=== PATIENT | male | born 1945 | race Caucasian/White ===

== ENCOUNTER 2018-08-31 12:42 | Inpatient (IN) | payer OTHER, BC ==
--- NOTE | 2018-08-31 13:11 | PDOC ---
History of Present Illness - General Chief Complaint: Lightheaded Stated Complaint: FALL WITH DIZZINESS Time Seen by Provider: 08/31/18 13:10 - History of Present Illness Initial Comments: 08/31/18 13:51 The patient is a 73 year old male with a history of HTN, DM, Anemia who presents for evaluation for syncope and lightheadedness. The patient is accompanied by family who assist in providing the history. They report a 2 week history of worsening lightheadedness and fatigue as well as 4-5 episodes of syncope with reported head trauma prompting his presentation to the ED for further evaluation. The patient's family also notes that the patient appears more pale than normal. He otherwise denies headache, neck pain, chest pain, SOB , nausea, vomiting, abdominal pain, numbness, tingling, weakness, or changes with urination. He does note some intermittent black stools. Past History - Past Medical History Allergies/Adverse Reactions: Allergies Allergy/AdvReac Type Severity Reaction Status Date / Time No Known Allergies Allergy Verified 08/31/18 13:07 Home Medications: Ambulatory Orders Amlodipine Besylate [Norvasc -] 10 mg PO DAILY 08/31/18 Fluoxetine HCl [Prozac] 20 mg PO DAILY 08/31/18 Losartan/Hydrochlorothiazide [Losartan-Hctz 50-12.5 mg Tab] 1 each PO DAILY 08/16 Metformin HCl [Glucophage] 1,000 mg PO DAILY 08/31/18 COPD: No Diabetes: Yes HTN: Yes - Suicide/Smoking/Psychosocial Hx Smoking History: Smoker current status UNK Review of Systems - Review of Systems Comments:: 08/31/18 13:55 Constitutional: No fevers, chills, fatigue, malaise HEENT: No Rhinorrhea, nasal congestion, visual changes Cardiovascular: Syncope, Lightheadedness. No chest pain, palpitations, Respiratory: No Cough, SOB, Hemoptysis, Gastrointestinal: Melena. No Abdominal pain, Nausea, Vomiting, Constipation, Diarrhea, Genitourinary: No Dysuria, Frequency, Urgency, Hesitancy, Hematuria, Flank pain Musculoskeletal: No Myalgia, arthralgia Skin: No rashes, itching, bruising, pallor Neurologic: No Headache, Dizziness, Numbness, Weakness, or Tingling Psychiatric: No Hallucinations. No SI or HI *Physical Exam - Vital Signs Last Vital Signs Temp Pulse Resp BP Pulse Ox 97.9 F 70 18 126/57 L 100 08/31/18 13:04 08/31/18 13:04 08/31/18 13:04 08/31/18 13:04 08/31/18 13:04 - Physical Exam Comments: 08/31/18 13:56 General Appearance: Nourished. No Apparent Distress HEENT: EOMI, BRITNI. No Pharyngeal Erythema, Tonsillar Exudate, Tonsillar Erythema Neck: No Cervical Lymphadenopathy Respiratory/Chest: Lungs Clear, Normal Breath Sounds. No Crackles, Rales, Rhonchi, Wheezing Cardiovascular: Regular Rhythm, Regular Rate. 2/6 systolic murmur noted on exam. No Gallops, Rubs Gastrointestinal/Abdominal: Normal Bowel Sounds, Soft. No Guarding, Rebound, Tenderness Rectal Exam: Normal Rectal Tone. Brown stool noted. Musculoskeletal: No CVA Tenderness Extremity: Normal Capillary Refill Integumentary: Pallor noted on exam. Normal, Dry, Warm Neurologic: child study team director II-XII NML intact, Fully Oriented, Alert, Normal Mood/Affect, Normal Response, Motor Strength 5/5. Heart Score/ECG Review #1 ECG reviewed & interpreted by me at: 13:56 08/31/18 13:56 Normal Sinus Rhythm No Acute ST changes HR 72 QRS 92 QTc 457 ED Treatment Course - LABORATORY CBC & Chemistry Diagram: 08/31/18 13:40 08/31/18 17:31 Medical Decision Making - Medical Decision Making 08/31/18 13:57 The patient is a 73 year old male with a history of HTN, DM, Anemia who presents for evaluation for syncope and lightheadedness. Differential includes but is not limited to: ACS, Intracranial process, Anemia, Arrhythmia, Infectious , Metabolic Derangement. Given the patient's history and physical exam, we will obtain a cbc, cmp, troponin, tsh, ua, ekg, chest plain film, head ct, coags , stool for occult blood. We will continue to monitor and reassess while here in the ED. 08/31/18 18:54 CBC demonstrates a hgb of 7.7. Cmp demonstrates a sodium of 118. Troponin is unremarkable. Chest plain film is unremarkable. Head CT is unremarkable as read by our radiologist. Stool for occult blood is negative. We will place the patient on maintenance fluids. The patient will require admission for further management. We discussed the case with the admitting team who accepted the patient for admission. *DC/Admit/Observation/Transfer Diagnosis at time of Disposition: Hyponatremia Anemia Qualifiers: Anemia type: unspecified type Qualified Code(s): D64.9 - Anemia, unspecified Syncope Qualifiers: Syncope type: unspecified Qualified Code(s): R55 - Syncope and collapse - Discharge Dispostion Condition at time of disposition: Stable Decision to Admit order: Yes - Referrals - Patient Instructions - Post Discharge Activity
[2018-08-31 14:08] LABS: HEMATOCRIT 25.7 % (35.4-49); HEMOGLOBIN 7.7 GM/dL (11.7-16.9); MCHC 30.1 g/dl (32.0-35.9); MEAN CELL VOLUME 56.4 fl (80-96); MEAN PLT VOLUME 8.2 fl (7.5-11.1); PLATELET COUNT 393 K/MM3 (134-434); RBC 4.56 M/mm3 (4.00-5.60); RDW 19.8 % (11.9-15.9); WHITE BLOOD COUNT 7.7 K/mm3 (4.0-10.0)
[2018-08-31 14:22] LABS: INR 1.15 (0.83-1.09); PROTHROMBIN TIME (PATIENT) 13.6 SEC (9.7-13.0)
[2018-08-31 14:25] LABS: ACTIVATED PTT 35.3 SECONDS (25.2-36.5)
[2018-08-31 14:54] LABS: ALK PHOS 126 U/L (45-117); BILIRUBIN,TOTAL 0.6 mg/dL (0.2-1); BLOOD UREA NITROGEN 12 mg/dL (7-18); CALCIUM 8.9 mg/dL (8.5-10.1); CHLORIDE 80 mmol/L (98-107); CO2 24 mmol/L (21-32); CREATININE 1.1 mg/dL (0.55-1.3); GLUCOSE,RANDOM 154 mg/dL (74-106); POTASSIUM 3.8 mmol/L (3.5-5.1); SGOT/AST 66 U/L (15-37); SGPT/ALT 56 U/L (13-61); TOT PROT 7.8 g/dl (6.4-8.2)
[2018-08-31 14:57] LABS: ANION GAP 14 MMOL/L (8-16)
[2018-08-31 15:02] LABS: SODIUM 118 mmol/L (136-145)
[2018-08-31] MEDS ORDERED: SODIUM CHLORIDE 1,000 ML IV SCH ×2 (15:15→23:45)
[2018-08-31 15:28] LABS: ANISOCYTOSIS 3+; MACROCYTOSIS 0; OVALOCYTE 2+; PLATELET ESTIMATE NORMAL; TARGET CELLS 1+; TEAR DROP CELLS 1+
--- NOTE | 2018-08-31 16:55 | CONSULT ---
Consult Consult Specialty:: Nephrology Reason for Consultation:: hyponatremia - History of Present Illness Chief Complaint: syncope History of Present Illness: Pt is a 73 year old male with pmhx of HTN, DM and anemia who presents to the ER with syncope. He has had several episodes of syncope and fall over the last few weeks. He was found to have hyponatremia and I was called to evaluate him. He denies excess water intake. He has good appetite. He denies chest pain or shortness of breath. He denies lower ext edema. He was on HCTZ which he did take this morning. He denies blood in the stool. He is awake and alert. - History Source History Provided By: Patient, Family Member, Medical Record - Past Medical History Cardio/Vascular: Yes: HTN Heme/Onc: Yes: Anemia Endocrine: Yes: Diabetes Mellitus - Smoking History Smoking history: Smoker current status UNK Home Medications - Allergies Allergies/Adverse Reactions: Allergies Allergy/AdvReac Type Severity Reaction Status Date / Time No Known Allergies Allergy Verified 08/31/18 13:07 - Home Medications Home Medications: Ambulatory Orders Amlodipine Besylate [Norvasc -] 10 mg PO DAILY 08/31/18 Fluoxetine HCl [Prozac] 20 mg PO DAILY 08/31/18 Losartan/Hydrochlorothiazide [Losartan-Hctz 50-12.5 mg Tab] 1 each PO DAILY 08/16 Metformin HCl [Glucophage] 1,000 mg PO DAILY 08/31/18 Family Disease History - Family Disease History Family History: Denies Review of Systems - Review of Systems Constitutional: reports: Malaise Eyes: reports: No Symptoms HENT: reports: No Symptoms Neck: reports: No Symptoms Cardiovascular: reports: No Symptoms Respiratory: reports: No Symptoms Gastrointestinal: reports: No Symptoms Genitourinary: reports: No Symptoms Musculoskeletal: reports: No Symptoms Neurological: reports: Change in LOC, Syncope Endocrine: reports: No Symptoms Hematology/Lymphatic: reports: No Symptoms Psychiatric: reports: No Symptoms Physical Exam Vital Signs: Vital Signs Temperature 97.9 F 08/31/18 13:04 Pulse Rate 70 08/31/18 13:04 Respiratory Rate 18 08/31/18 13:04 Blood Pressure 126/57 L 08/31/18 13:04 O2 Sat by Pulse Oximetry (%) 100 08/31/18 13:04 Constitutional: Yes: Calm Eyes: Yes: Conjunctiva Clear HENT: Yes: Atraumatic Neck: Yes: Supple Cardiovascular: Yes: S1, S2 Respiratory: Yes: CTA Bilaterally Gastrointestinal: Yes: Normal Bowel Sounds, Soft Renal/: Yes: WNL Musculoskeletal: Yes: WNL Edema: No Neurological: Yes: Oriented Psychiatric: Yes: Oriented Labs: CBC, BMP 08/31/18 13:40 08/31/18 13:40 Laboratory Tests 08/31/18 08/31/18 08/31/18 13:20 13:40 13:40 WBC 7.7 Hgb 7.7 L Plt Count 393 Sodium 118 L* Potassium 3.8 Chloride 80 L Carbon Dioxide 24 Anion Gap 14 BUN 12 Creatinine 1.1 Stool Occult Blood Negative Imaging - Results Chest X-ray: Report Reviewed Cat Scan: Report Reviewed Problem List - Problems (1) HTN (hypertension) Code(s): I10 - ESSENTIAL (PRIMARY) HYPERTENSION (2) Anemia Code(s): D64.9 - ANEMIA, UNSPECIFIED Qualifiers: Anemia type: unspecified type Qualified Code(s): D64.9 - Anemia, unspecified (3) Hyponatremia Code(s): E87.1 - HYPO-OSMOLALITY AND HYPONATREMIA (4) Syncope Code(s): R55 - SYNCOPE AND COLLAPSE Qualifiers: Syncope type: unspecified Qualified Code(s): R55 - Syncope and collapse Assessment/Plan Current Medications Generic Name Dose Route Start Last Admin Trade Name Freq PRN Reason Stop Dose Admin Sodium Chloride 1,000 mls @ 100 mls/hr 08/31/18 15:15 08/31/18 15:26 Normal Saline - IV 100 mls/hr ASDIR MICA Administration Impression 1. hyponatremia 2. HTN 3. DM 4. anemia 5. syncope Plan - stop HCTZ, likely reason for hyponatremia - check serum and urine osm - check urine lytes - pt did take a dose of hctz this morning - cont wit saline and monitor response - avoid a change in sodium of greater than 10 meq in 24 hours - will need admission to the hospital - anemia workup per primary team, pt and family unaware of etiology - discussed with medical team
[2018-08-31] MEDS ORDERED: ACETAMINOPHEN 325 MG TABLET (FP) PO PRN (17:20)
--- NOTE | 2018-08-31 17:26 | HP ---
Admitting History and Physical - Primary Care Physician PCP: none - Admission Chief Complaint: weakness History of Present Illness: Mr Koo is a 73 year old male who comes in with weakness and falls. He is mainly without complaint and asks if he can go home and be treated from there. However his son and daughter are at the bedside and they state over the past 2 weeks he has been weak and falling. He has had 4 falls in 2 weeks. These falls are syncopal in nature. They say he will be walking and then lose consciousness and fall. Per discussion with Dr Aquino he may also have fell down the stairs with one fall but I was not told this. He has anorexia associated with it and has been drinking less as well. He has been compliant with all his medications. He has epigastric pain and nausea without vomiting. He denies fevers, chills, chest pain, shortness of breath, coughing, diarrhea, constipation, difficulty or pain on urination, or swelling. He has a history of anemia and had endoscopy/ colonoscopy performed in [place] where they are transitioning his care. Per family it was normal and they did not find a source of bleeding. He has not had a small bowel capsule endoscopy. Currently he says he is feeling well and does not want to stay in the hospital for long. History Source: Patient Limitations to Obtaining History: No Limitations - Past Medical History Cardiovascular: Yes: HTN, Hyperlipdemia Heme/Onc: Yes: Anemia Endocrine: Yes: Diabetes Mellitus - Past Surgical History Past Surgical History: Yes: None - Smoking History Smoking history: Never smoked If you are a former smoker, when did you quit?: uses oral tobacco - Alcohol/Substance Use Hx Alcohol Use: Yes Number of Drinks Daily: 4 History of Substance Use: reports: None - Social History Usual Living Arrangement: Yes: With Child ADL: Family Assistance Other Social History: unclear when came back from [place] and why Home Medications - Allergies Allergies/Adverse Reactions: Allergies Allergy/AdvReac Type Severity Reaction Status Date / Time No Known Allergies Allergy Verified 08/31/18 13:07 - Home Medications Home Medications: Ambulatory Orders Amlodipine Besylate [Norvasc -] 10 mg PO DAILY 08/31/18 Fluoxetine HCl [Prozac] 20 mg PO DAILY 08/31/18 Losartan/Hydrochlorothiazide [Losartan-Hctz 50-12.5 mg Tab] 1 each PO DAILY 08/16 Metformin HCl [Glucophage] 1,000 mg PO DAILY 08/31/18 Family Disease History - Family Disease History Family History: Unremarkable Review of Systems Findings/Remarks: Full review of systems obtained, as per HPI and otherwise negative Physical Examination Vital Signs: Vital Signs Temperature 36.6 C 08/31/18 13:04 Pulse Rate 70 08/31/18 13:04 Respiratory Rate 18 08/31/18 13:04 Blood Pressure 126/57 L 08/31/18 13:04 O2 Sat by Pulse Oximetry (%) 100 08/31/18 13:04 Constitutional: Yes: Well Nourished, No Distress, Calm Eyes: Yes: Conjunctiva Clear, EOM Intact, PERRL HENT: Yes: Atraumatic, Normocephalic Cardiovascular: Yes: Regular Rate and Rhythm. No: Gallop, Murmur, Rub Respiratory: Yes: Regular, CTA Bilaterally. No: Rales, Rhonchi, Wheezes Gastrointestinal: Yes: Normal Bowel Sounds, Soft. No: Distention, Tenderness Extremities: Yes: WNL Edema: No Labs: CBC, BMP 08/31/18 13:40 08/31/18 13:40 Imaging - Results Chest X-ray: Report Reviewed, Image Reviewed Cat Scan: Report Reviewed Problem List - Problems (1) Hyponatremia Assessment/Plan: -case d/w Dr Aquino in consultation -admit to telemetry -will trial normal saline -frequent bmp checks as do not want to increase sodium aggressively -suspect HCTZ is causing -also on fluoxetine which can cause, will decrease this as well Code(s): E87.1 - HYPO-OSMOLALITY AND HYPONATREMIA (2) Syncope Assessment/Plan: -possibly secondary to hyponatremia -also consider anemia but this sounds chronic in nature -hydration with IVF -fall risk precautions -check carotid ultrasound and ECHO -PT consult Code(s): R55 - SYNCOPE AND COLLAPSE Qualifiers: Syncope type: unspecified Qualified Code(s): R55 - Syncope and collapse (3) Diabetes Assessment/Plan: -diabetic diet -continue metformin -FSBS and SSI Code(s): E11.9 - TYPE 2 DIABETES MELLITUS WITHOUT COMPLICATIONS (4) Anemia Assessment/Plan: -chronic -unclear what baseline is -has not been seen in this community in 2 years, care has been transitioned to [place] -monitor -check anemia labs -transfuse for Hgb less than 7 Code(s): D64.9 - ANEMIA, UNSPECIFIED Qualifiers: Anemia type: unspecified type Qualified Code(s): D64.9 - Anemia, unspecified (5) HTN (hypertension) Assessment/Plan: -hold HCTZ -continue amlodipine and losartan Code(s): I10 - ESSENTIAL (PRIMARY) HYPERTENSION
[2018-08-31 18:06] LABS: ANION GAP 10 MMOL/L (8-16); BLOOD UREA NITROGEN 12 mg/dL (7-18); CALCIUM 8.7 mg/dL (8.5-10.1); CHLORIDE 81 mmol/L (98-107); CO2 25 mmol/L (21-32); GLUCOSE,RANDOM 149 mg/dL (74-106); POTASSIUM 3.2 mmol/L (3.5-5.1)
[2018-08-31 18:09] LABS: SODIUM 116 mmol/L (136-145)
--- NOTE | 2018-08-31 18:25 | PDOC ---
Documentation entered by Georgette Allen SCRIBE, acting as scribe for Chaim Whitt MD. Chaim Whitt MD: This documentation has been prepared by the Alejandro franco Nirvannie, SCRIBE, under my direction and personally reviewed by me in its entirety. I confirm that the documentation accurately reflects all work, treatment, procedures, and medical decision making performed by me. Attending Attestation - Resident Resident Name: Donnell Boss - ED Attending Attestation I have performed the following: I have examined & evaluated the patient, The case was reviewed & discussed with the resident, I agree w/resident's findings & plan, Exceptions are as noted - HPI HPI: 08/31/18 14:07 The patient is a 73 year old male, with a significant past medical history of HTN, HLD, DM, and Anemia, who presents to the emergency department s/p 2 weeks of multiple episodes (approx. 4) of syncope and lightheadedness. As per patient and at bedside, over the course of the past 2 weeks he has been experiencing lightheadedness followed by episodes of syncope/near syncope with multiple falls some of which he sustained trauma to the head. Patient endorses an associated intermittent 2 weeks of dark stools. He denies any chest pain or shortness of breath. Allergies: NKDA Primary Care Physician: Dr. Galvan. In the process of moving care over to [place]. - Physicial Exam PE: 08/31/18 14:27 GENERAL: Awake, alert, and fully oriented, in no acute distress HEAD: No signs of trauma NECK: Normal ROM. No JVD. LUNGS: Breath sounds equal, clear to auscultation bilaterally. No wheezes, and no crackles HEART: Regular rate and rhythm, normal S1 and S2, no murmurs, rubs or gallops ABDOMEN: Soft, nontender. No guarding, no rebound. EXTREMITIES: Normal range of motion, no edema. No clubbing or cyanosis. No cords, erythema, or tenderness NEUROLOGICAL: Alert, awake, appropriate. Cranial nerves 2-12 intact. No deficits to light touch and temperature in face, upper extremities and lower extremities. No motor deficits in the in face, upper extremities and lower extremities. No pronator drift. Normoreflexic in the upper and lower extremities. Normal speech. Toes are down-going bilaterally. SKIN: +Abrasion without tenderness to right forearm. Warm, Dry, normal turgor, no rashes or lesions noted. - Medical Decision Making 08/31/18 14:10 A portion of this note was documented by scribe services under my direction. I have reviewed the details of the note, within reason, and agree with the documentation with the following case summary and management plan written by me. Patient treated in the ED. Nursing notes are reviewed and incorporated into the medical decision-making. Vital signs reviewed. Peripheral IV access obtained by the nurse, laboratory studies are drawn and sent, reviewed and interpreted by myself. Vital Signs Temp Pulse Resp BP Pulse Ox 97.9 F 70 18 126/57 L 100 08/31/18 13:04 08/31/18 13:04 08/31/18 13:08/31/18 13:08/31/18 13:04 73-year-old male with history of hypertension, diabetes, hyperlipidemia presents with multiple syncopal episodes over last 2 weeks. The patient's and the patient noted that he's been feeling generally weak and occasionally lightheaded. The symptoms would be prompted by no prodromal symptoms. Patient would faint and occasionally hit his head. Denies any broken bones or injuries or pain. Patient does feel like worsened appetite and no fevers or chills or nausea or vomiting. Denies diarrhea. Denies chest pain short of breath. The patient's been endorsing feeling generally weak but not altered. Patient's findings are concerning for multiple syncopal episodes. We'll obtain head CT given the fall and injury. The patient is neurologically intact at this time. EKG, troponin, chest x-ray. We'll need to investigate for potential cardiac or neurologic etiology so the patient should be admitted to the hospital. TYPE/EXAM: RESULT: RAD/CHEST X-RAY PORTABLE* Chest : Lightheadedness. A single view of the chest reveals a weak inspiration with clear lungs, sharp angles, intact bones and soft tissues, unfolded aorta, normal darryl and normal heart. An acute chest process is not seen. Impression: No acute chest pathology. Reported By: Andre Brandt MD 08/31/18 15:46 CBC, BMP 08/31/18 13:40 08/31/18 13:40 CMP Sodium 118 mmol/L (136-145) L* 08/31/18 13:40 Potassium 3.8 mmol/L (3.5-5.1) 08/31/18 13:40 Chloride 80 mmol/L (98-107) L 08/31/18 13:40 Carbon Dioxide 24 mmol/L (21-32) 08/31/18 13:40 Anion Gap 14 MMOL/L (8-16) 08/31/18 13:40 BUN 12 mg/dL (7-18) 08/31/18 13:40 Creatinine 1.1 mg/dL (0.55-1.3) 08/31/18 13:40 Creat Clearance w eGFR 65.99 (>60) 08/31/18 13:40 Random Glucose 154 mg/dL (74-106) H 08/31/18 13:40 Calcium 8.9 mg/dL (8.5-10.1) 08/31/18 13:40 Total Bilirubin 0.6 mg/dL (0.2-1) 08/31/18 13:40 AST 66 U/L (15-37) H 08/31/18 13:40 ALT 56 U/L (13-61) 08/31/18 13:40 Alkaline Phosphatase 126 U/L (45-117) H 08/31/18 13:40 Creatine Kinase 158 U/L (26-308) 08/31/18 13:40 Creatine Kinase Index 7.2 % (0.0-5.0) H* 08/31/18 13:40 CK-MB (CK-2) 11.5 ng/mL (0.5-3.6) H 08/31/18 13:40 Troponin I < 0.02 ng/ml (0.00-0.05) 08/31/18 13:40 Total Protein 7.8 g/dl (6.4-8.2) 08/31/18 13:40 Albumin 4.0 g/dl (3.4-5.0) 08/31/18 13:40 TSH 1.79 uIU/ml (0.358-3.74) 08/31/18 13:40 The patient is noted to have hemoglobin 7.7 and low MCV. Patient could potentially be having symptomatically anemia however, the patient will need further workup as his sodium is also 118. The patient has multiple disarray several require admission. The patient will be minutes the hospital for further evaluate. Imaging reviewed. Heart Score/ECG Review #1 ECG reviewed & interpreted by me at: 13:00 08/31/18 14:12 NSR 72, no std/lissette, Q wave III, QTC 457 msec, nonspecific ST abnormality, no brugada, no HOCM, no WPW
[2018-08-31] MEDS ORDERED: POTASSIUM CHLORIDE TABS 20 MEQ TABLET.ER (FP) PO ONE (22:14)
[2018-08-31 23:15] LABS: ALBUMIN 3.8 g/dl (3.4-5.0); ALK PHOS 118 U/L (45-117); ANION GAP 9 MMOL/L (8-16); BILIRUBIN,TOTAL 0.6 mg/dL (0.2-1); BLOOD UREA NITROGEN 9 mg/dL (7-18); CALCIUM 8.9 mg/dL (8.5-10.1); CHLORIDE 84 mmol/L (98-107); CO2 25 mmol/L (21-32); CREATININE 0.9 mg/dL (0.55-1.3); GLUCOSE,RANDOM 141 mg/dL (74-106); MAGNESIUM 1.8 mg/dL (1.8-2.4); POTASSIUM 3.5 mmol/L (3.5-5.1); SGOT/AST 54 U/L (15-37); SGPT/ALT 50 U/L (13-61); TOT PROT 7.6 g/dl (6.4-8.2)
[2018-08-31 23:22] LABS: SODIUM 118 mmol/L (136-145)
[2018-08-31] MEDS ORDERED: SODIUM CHLORIDE 1 GM TABLET PO ONE (23:45)
[2018-08-31] MEDS ORDERED: SODIUM CHLORIDE 500 ML IV STA (23:58)
[2018-09-01] MEDS: INSULIN SLIDING SCALE (NOVOLOG) 1 VIAL SQ SCH ×5 (00:11→22:40)
[2018-09-01] MEDS ORDERED: POTASSIUM CHLORIDE TABS 20 MEQ TABLET.ER (FP) PO ONE (00:14)
[2018-09-01] MEDS ORDERED: metFORMIN HCL 500 MG TABLET (FP) PO SCH (07:00)
[2018-09-01] MEDS ORDERED: metFORMIN HCL 500 MG TABLET (FP) ONE (07:11)
[2018-09-01 07:20] LABS: HEMATOCRIT 22.5 % (35.4-49); MCHC 30.8 g/dl (32.0-35.9); MEAN PLT VOLUME 8.1 fl (7.5-11.1); PLATELET COUNT 361 K/MM3 (134-434); RBC 4.01 M/mm3 (4.00-5.60); RDW 19.9 % (11.9-15.9); WHITE BLOOD COUNT 7.1 K/mm3 (4.0-10.0)
[2018-09-01 07:26] LABS: ALBUMIN 3.6 g/dl (3.4-5.0); ALK PHOS 112 U/L (45-117); ANION GAP 9 MMOL/L (8-16); BILIRUBIN,TOTAL 0.6 mg/dL (0.2-1); BLOOD UREA NITROGEN 7 mg/dL (7-18); CALCIUM 8.4 mg/dL (8.5-10.1); CHLORIDE 86 mmol/L (98-107); CO2 25 mmol/L (21-32); CREATININE 0.7 mg/dL (0.55-1.3); GLUCOSE,RANDOM 135 mg/dL (74-106); MAGNESIUM 1.6 mg/dL (1.8-2.4); POTASSIUM 3.7 mmol/L (3.5-5.1); SGOT/AST 46 U/L (15-37); SGPT/ALT 45 U/L (13-61); TOT PROT 7.1 g/dl (6.4-8.2)
[2018-09-01 07:27] LABS: MCH 17.2 pg (25.7-33.7)
[2018-09-01 07:44] LABS: SODIUM 119 mmol/L (136-145)
[2018-09-01 08:09] LABS: HEMOGLOBIN 6.9 GM/dL (11.7-16.9)
[2018-09-01 09:14] LABS: OSMOLALITY,SERUM 245 mosm/kg (278-305)
--- NOTE | 2018-09-01 09:19 | EKG ---
Test Reason : Blood Pressure : / mmHG Vent. Rate : 072 BPM Atrial Rate : 072 BPM P-R Int : 172 ms QRS Dur : 092 ms QT Int : 418 ms P-R-T Axes : 029 022 040 degrees QTc Int : 457 ms NORMAL SINUS RHYTHM WITH SINUS ARRHYTHMIA NONSPECIFIC ST ABNORMALITY ABNORMAL ECG NO PREVIOUS ECGS AVAILABLE Confirmed by ANNA FELTON, EMILIANO ([id number]) on 09/01/2018 9:19:09 AM Referred By: Confirmed By:EMILIANO CASTILLO MD
[2018-09-01] MEDS ORDERED: amLODIPine BESYLATE 5 MG TABLET (FP) ONE (09:37)
[2018-09-01] MEDS ORDERED: LOSARTAN POTASSIUM 50 MG TABLET (FP) ONE (09:38)
[2018-09-01] MEDS ORDERED: MAGNESIUM OXIDE 400 MG TABLET (FP) ONE (09:38)
[2018-09-01] MEDS ORDERED: SODIUM CHLORIDE 3% 500 ML/500 ML INFUS.BAG IV ONE ×4 (09:45→14:40)
[2018-09-01] MEDS ORDERED: FLUoxetine HCL 10 MG CAPSULE (FP) PO SCH (10:00)
[2018-09-01] MEDS ORDERED: MAGNESIUM OXIDE 400 MG TABLET (FP) PO SCH (10:00)
[2018-09-01] MEDS ORDERED: LOSARTAN POTASSIUM 50 MG TABLET (FP) PO SCH (10:00)
[2018-09-01] MEDS ORDERED: amLODIPine BESYLATE 10 MG TABLET (FP) PO SCH (10:00)
[2018-09-01] MEDS: MUPIROCIN 2% TOPICAL OINTMENT FOR DECOLONIZATION NS SCH ×2 (10:09→22:24)
--- NOTE | 2018-09-01 10:18 | PN ---
Progress Note, Physician Chief Complaint: Mr Koo complains of being unable to sleep but otherwise is without complaint. Denies cp, sob, n/v. - Current Medication List Current Medications: Active Medications Acetaminophen (Tylenol -) 650 mg PO Q4H PRN PRN Reason: FEVER Amlodipine Besylate (Norvasc -) 10 mg PO DAILY [facility] Last Admin: 09/01/18 10:06 Dose: 10 mg Chlorhexidine Gluconate (Hibiclens For Decolonization -) 1 applic TP HS [facility] Fluoxetine HCl (Prozac -) 10 mg PO DAILY [facility] Last Admin: 09/01/18 10:07 Dose: 10 mg Sodium Chloride (Sodium Chloride 3%) 500 ml in 500 mls @ 25 mls/hr IV ASDIR ONE Stop: 09/02/18 05:44 Last Admin: 09/01/18 10:07 Dose: 25 mls/hr Insulin Aspart (Novolog Vial Sliding Scale -) 1 vial SQ ACHS [facility]; Protocol Last Admin: 09/01/18 09:15 Dose: Not Given Losartan Potassium (Cozaar -) 50 mg PO DAILY [facility] Last Admin: 09/01/18 10:06 Dose: 50 mg Magnesium Oxide (Mag-Ox -) 400 mg PO BID [facility] Last Admin: 09/01/18 10:06 Dose: 400 mg Metformin HCl (Glucophage -) 1,000 mg PO AM [facility] Last Admin: 09/01/18 07:15 Dose: 1,000 mg Mupirocin (Bactroban Ointment (For Decolonization) -) 1 applic NS BID [facility] Stop: 09/06/18 09:59 Last Admin: 09/01/18 10:09 Dose: Not Given - Objective Vital Signs: Vital Signs Temperature 36.9 C 09/01/18 08:00 Pulse Rate 70 09/01/18 08:00 Respiratory Rate 18 09/01/18 08:00 Blood Pressure 142/70 09/01/18 08:00 O2 Sat by Pulse Oximetry (%) 98 09/01/18 06:07 Constitutional: Yes: Well Nourished, No Distress, Calm Cardiovascular: Yes: Regular Rate and Rhythm. No: Gallop, Murmur, Rub Respiratory: Yes: Regular, CTA Bilaterally. No: Rales, Rhonchi, Wheezes Gastrointestinal: Yes: Normal Bowel Sounds, Soft. No: Distention, Tenderness Extremities: Yes: WNL Edema: No Labs: CBC, BMP 09/01/18 05:20 09/01/18 05:20 INR, PTT INR 1.15 (0.83-1.09) H 08/31/18 13:40 Problem List - Problems (1) Hyponatremia Code(s): E87.1 - HYPO-OSMOLALITY AND HYPONATREMIA (2) Syncope Code(s): R55 - SYNCOPE AND COLLAPSE Qualifiers: Syncope type: unspecified Qualified Code(s): R55 - Syncope and collapse (3) Diabetes Code(s): E11.9 - TYPE 2 DIABETES MELLITUS WITHOUT COMPLICATIONS (4) Anemia Code(s): D64.9 - ANEMIA, UNSPECIFIED Qualifiers: Anemia type: unspecified type Qualified Code(s): D64.9 - Anemia, unspecified (5) HTN (hypertension) Code(s): I10 - ESSENTIAL (PRIMARY) HYPERTENSION Assessment/Plan (1) Hyponatremia Assessment/Plan: -case d/w Dr Aquino in consultation -not much improved -will place on hypertonic saline -transfer to ICU -? if solely from HCTZ and fluoxetine -considering anemia, possible neoplastic syndrome -will obtain CT scan C/A/P Code(s): E87.1 - HYPO-OSMOLALITY AND HYPONATREMIA (2) Syncope Assessment/Plan: -has not recurred -carotid ultrasound performed -ECHO pending -continue fall risk precautions and PT consult Code(s): R55 - SYNCOPE AND COLLAPSE Qualifiers: Syncope type: unspecified Qualified Code(s): R55 - Syncope and collapse (3) Diabetes Assessment/Plan: -diabetic diet -continue metformin -FSBS and SSI -controlled Code(s): E11.9 - TYPE 2 DIABETES MELLITUS WITHOUT COMPLICATIONS (4) Anemia Assessment/Plan: -Hgb is less than 7 today -will transfuse 1 unit -has elevated B12 and folate -ferritin is low normal -awaiting iron studies -check FOBT -family considering transitioning care back here to [place] Code(s): D64.9 - ANEMIA, UNSPECIFIED Qualifiers: Anemia type: unspecified type Qualified Code(s): D64.9 - Anemia, unspecified (5) HTN (hypertension) Assessment/Plan: -hold HCTZ -continue amlodipine and losartan Code(s): I10 - ESSENTIAL (PRIMARY) HYPERTENSION
[2018-09-01 13:42] LABS: BLOOD UREA NITROGEN 6 mg/dL (7-18); CALCIUM 8.7 mg/dL (8.5-10.1); CHLORIDE 87 mmol/L (98-107); CO2 22 mmol/L (21-32); GLUCOSE,RANDOM 132 mg/dL (74-106); POTASSIUM 3.6 mmol/L (3.5-5.1)
[2018-09-01 14:00] LABS: ANION GAP 11 MMOL/L (8-16); CREATININE 0.7 mg/dL (0.55-1.3)
[2018-09-01 14:10] LABS: SODIUM 119 mmol/L (136-145)
[2018-09-01] MEDS ORDERED: ACETAMINOPHEN 325 MG TABLET (FP) PO PRN (14:40)
--- NOTE | 2018-09-01 15:01 | CONSULT ---
Consult Consult Specialty:: CCM Reason for Consultation:: hyponatremia, syncope, fall - History of Present Illness History of Present Illness: This is a 73 yo man w/ HTN, DM, depression who present to ED w/ several episodes of syncope over the 7 days [employer] prompting ED visit where he was found to have severe hypoosmotic hyponatremia (Na:118, osmo 245) in the setting of HCTZ plus prozac use. Renal was consulted and given symptomatic hyponatremia the patient was placed on hypertonic saline (3%) and admitted to the ICU for continued monitoring. He was also noted to have anemia w/ Hgb 6.9 and was transfused PRBC x1. CTAP was w/o signs of RP bleeding. Given syncope a NCHCT was done and negative for acute pathology. Carotid dopplers done w/ results pending. - History Source History Provided By: Patient, Family Member, Medical Record Limitations to Obtaining History: No Limitations - Past Medical History Cardio/Vascular: Yes: HTN, Hyperlipdemia Endocrine: Yes: Diabetes Mellitus - Past Surgical History Past Surgical History: Yes: None - Alcohol/Substance Use Hx Alcohol Use: Yes Number of Drinks Daily: 4 History of Substance Use: reports: None - Smoking History Smoking history: Never smoked If you are a former smoker, when did you quit?: uses oral tobacco - Social History ADL: Family Assistance Home Medications - Allergies Allergies/Adverse Reactions: Allergies Allergy/AdvReac Type Severity Reaction Status Date / Time No Known Allergies Allergy Verified 08/31/18 13:07 - Home Medications Home Medications: Ambulatory Orders Amlodipine Besylate [Norvasc -] 10 mg PO DAILY 08/31/18 Fluoxetine HCl [Prozac] 20 mg PO DAILY 08/31/18 Losartan/Hydrochlorothiazide [Losartan-Hctz 50-12.5 mg Tab] 1 each PO DAILY 08/16 Metformin HCl [Glucophage] 1,000 mg PO DAILY 08/31/18 Family Disease History - Family Disease History Family History: Unremarkable Review of Systems - Review of Systems Constitutional: reports: Lethargy, Weakness Eyes: reports: No Symptoms. denies: Blind Spots, Blurred Vision, Double Vision , Eye Pain, Floaters, Photophobia, Recent Change in Vision, Other Respiratory: reports: No Symptoms Neurological: reports: Dizziness, Syncope Physical Exam Vital Signs: Vital Signs Temperature 97.9 F 09/01/18 12:15 Pulse Rate 73 09/01/18 12:15 Respiratory Rate 21 H 09/01/18 12:15 Blood Pressure 150/73 09/01/18 12:15 O2 Sat by Pulse Oximetry (%) 95 09/01/18 10:00 Current Medications Acetaminophen (Tylenol -) 650 mg PO Q4H PRN PRN Reason: FEVER Amlodipine Besylate (Norvasc -) 10 mg PO DAILY [facility] Chlorhexidine Gluconate (Hibiclens For Decolonization -) 1 applic TP HS MICA Fluoxetine HCl (Prozac -) 10 mg PO DAILY [facility] Sodium Chloride (Sodium Chloride 3%) 500 ml in 500 mls @ 35 mls/hr IV ASDIR ONE Stop: 09/02/18 00:02 Sodium Chloride (Sodium Chloride 3%) 500 ml in 500 mls @ 25 mls/hr IV ASDIR ONE Stop: 09/02/18 05:44 Insulin Aspart (Novolog Vial Sliding Scale -) 1 vial SQ ACHS [facility]; Protocol Losartan Potassium (Cozaar -) 50 mg PO DAILY [facility] Magnesium Oxide (Mag-Ox -) 400 mg PO BID [facility] Metformin HCl (Glucophage -) 1,000 mg PO AM [facility] Mupirocin (Bactroban Ointment (For Decolonization) -) 1 applic NS BID [facility] Stop: 09/06/18 09:59 Last Admin: 09/01/18 10:09 Dose: Not Given Constitutional: Yes: Calm Eyes: Yes: EOM Intact HENT: Yes: Normocephalic Cardiovascular: Yes: Regular Rate and Rhythm, S1, S2 Respiratory: Yes: CTA Bilaterally Gastrointestinal: Yes: Normal Bowel Sounds, Soft Extremities: Yes: WNL Edema: No Neurological: Yes: Alert, Oriented Labs: CBC, BMP 09/01/18 05:20 09/01/18 12:30 Laboratory Tests 08/31/18 08/31/18 17:31 17:31 Urine Osmolality 484 Ur Random Sodium 86 Ur Random Potassium 41.6 Ur Random Chloride 99 L Imaging - Results Chest X-ray: Report Reviewed, Image Reviewed Cat Scan: Report Reviewed, Image Reviewed Problem List - Problems (1) Anemia Code(s): D64.9 - ANEMIA, UNSPECIFIED Qualifiers: Anemia type: unspecified type Qualified Code(s): D64.9 - Anemia, unspecified (2) Diabetes Code(s): E11.9 - TYPE 2 DIABETES MELLITUS WITHOUT COMPLICATIONS (3) Hyponatremia Code(s): E87.1 - HYPO-OSMOLALITY AND HYPONATREMIA (4) Syncope Code(s): R55 - SYNCOPE AND COLLAPSE Qualifiers: Syncope type: unspecified Qualified Code(s): R55 - Syncope and collapse Assessment/Plan 73 yo man HTN, DM who presented after syncopal episodes found to be hyponatremic and anemic.HypoNa most likely medication related: HCTZ and prozac -Renal following -goal Na correction 125 over next 24hrs. Goal 8 Paulina per day -cont hyperNa per Renal w/ frequent BMP tp monitor correction -d/c home HCTZ -decrease prozac by 50% as this may also be contributing to hypoNa but unable to stop completely 2/2 possibility of withdrawal -strict I&Os -notify MD if urine output >200ml/hr -transfuse for Hgb <7.0 -check AM cortisol level as source of hypoNa -anemia w/u as OP, given c/f possible underlying malignancy -DVT PPx Boerem ACNP CCT: 35m
--- NOTE | 2018-09-01 16:23 | PN ---
Progress Note, Physician History of Present Illness: Pt seen and examined at bedside. He is awake and alert. He denies shortness of breath. He denies headache. - Current Medication List Current Medications: Active Medications Acetaminophen (Tylenol -) 650 mg PO Q4H PRN PRN Reason: FEVER Amlodipine Besylate (Norvasc -) 10 mg PO DAILY [facility] Chlorhexidine Gluconate (Hibiclens For Decolonization -) 1 applic TP HS MICA Fluoxetine HCl (Prozac -) 10 mg PO DAILY [facility] Sodium Chloride (Sodium Chloride 3%) 500 ml in 500 mls @ 35 mls/hr IV ASDIR ONE Stop: 09/02/18 00:02 Last Admin: 09/01/18 15:24 Dose: 35 mls/hr Insulin Aspart (Novolog Vial Sliding Scale -) 1 vial SQ ACHS [facility]; Protocol Losartan Potassium (Cozaar -) 50 mg PO DAILY [facility] Magnesium Oxide (Mag-Ox -) 400 mg PO BID [facility] Mupirocin (Bactroban Ointment (For Decolonization) -) 1 applic NS BID [facility] Stop: 09/06/18 09:59 Last Admin: 09/01/18 10:09 Dose: Not Given - Objective Vital Signs: Vital Signs Temperature 98.6 F 09/01/18 15:09 Pulse Rate 81 09/01/18 16:00 Respiratory Rate 23 H 09/01/18 16:00 Blood Pressure 111/87 09/01/18 16:00 O2 Sat by Pulse Oximetry (%) 95 09/01/18 10:00 Constitutional: Yes: Calm Eyes: Yes: Conjunctiva Clear HENT: Yes: Atraumatic Cardiovascular: Yes: S1, S2 Respiratory: Yes: CTA Bilaterally Gastrointestinal: Yes: Soft Genitourinary: Yes: WNL Musculoskeletal: Yes: WNL Extremities: Yes: WNL Edema: No Neurological: Yes: Oriented Psychiatric: Yes: Oriented Labs: CBC, BMP 09/01/18 05:20 09/01/18 12:30 INR, PTT INR 1.15 (0.83-1.09) H 08/31/18 13:40 Problem List - Problems (1) HTN (hypertension) Code(s): I10 - ESSENTIAL (PRIMARY) HYPERTENSION (2) Anemia Code(s): D64.9 - ANEMIA, UNSPECIFIED Qualifiers: Anemia type: unspecified type Qualified Code(s): D64.9 - Anemia, unspecified (3) Hyponatremia Code(s): E87.1 - HYPO-OSMOLALITY AND HYPONATREMIA (4) Syncope Code(s): R55 - SYNCOPE AND COLLAPSE Qualifiers: Syncope type: unspecified Qualified Code(s): R55 - Syncope and collapse Assessment/Plan Current Medications Generic Name Dose Route Start Last Admin Trade Name Freq PRN Reason Stop Dose Admin Acetaminophen 650 mg 09/01/18 14:40 Tylenol - PO Q4H PRN FEVER Amlodipine Besylate 10 mg 09/02/18 10:00 Norvasc - PO DAILY [facility] Chlorhexidine Gluconate 1 applic 09/01/18 22:00 Hibiclens For Decolonization - TP HS [facility] Fluoxetine HCl 10 mg 09/02/18 10:00 Prozac - PO DAILY [facility] Sodium Chloride 500 ml in 500 mls @ 35 mls/hr 09/01/18 14:26 09/01/18 15:24 Sodium Chloride 3% IV 09/02/18 00:02 35 mls/hr ASDIR ONE Administration Insulin Aspart 1 vial 09/01/18 16:30 Novolog Vial Sliding Scale - SQ ACHS [facility] Protocol Losartan Potassium 50 mg 09/02/18 10:00 Cozaar - PO DAILY [facility] Magnesium Oxide 400 mg 09/01/18 22:00 Mag-Ox - PO BID [facility] Mupirocin 1 applic 09/01/18 10:00 09/01/18 10:09 Bactroban Ointment (For Decolonization) - NS 09/06/18 09:59 Not Given BID [facility] Laboratory Tests 08/31/18 08/31/18 09/01/18 17:31 17:31 05:20 Serum Osmolality 245 L Iron TIBC Iron Saturation Transferrin Urine Osmolality 484 Ur Random Sodium 86 09/01/18 05:20 Serum Osmolality Iron Pending TIBC Pending Iron Saturation Pending Transferrin Pending Urine Osmolality Ur Random Sodium Laboratory Tests 08/31/18 13:20 Stool Occult Blood Negative Impression 1. hyponatremia 2. HTN 3. DM 4. anemia 5. syncope Plan - changed fluids to hypertonic saline - pt now in ICU - keep thiazide on hold - avoid a change in sodium of greater than 10 meq in 24 hours - will need admission to the hospital - anemia workup per primary team - discussed with medical team
[2018-09-01] MEDS ORDERED: DEXTROSE 5%-WATER - 1,000 ML IV SCH ×2 (17:15→19:15)
[2018-09-01 18:33] LABS: HEMATOCRIT 29.8 % (35.4-49); HEMOGLOBIN 9.3 GM/dL (11.7-16.9); MCHC 31.2 g/dl (32.0-35.9); MEAN CELL VOLUME 60.2 fl (80-96); MEAN PLT VOLUME 8.1 fl (7.5-11.1); PLATELET COUNT 331 K/MM3 (134-434); RBC 4.96 M/mm3 (4.00-5.60); RDW 24.1 % (11.9-15.9); WHITE BLOOD COUNT 7.8 K/mm3 (4.0-10.0)
[2018-09-01 18:41] LABS: MCH 18.8 pg (25.7-33.7)
[2018-09-01 18:53] LABS: ANION GAP 10 MMOL/L (8-16); BLOOD UREA NITROGEN 8 mg/dL (7-18); CALCIUM 8.3 mg/dL (8.5-10.1); CHLORIDE 93 mmol/L (98-107); CO2 24 mmol/L (21-32); CREATININE 0.9 mg/dL (0.55-1.3); GLUCOSE,RANDOM 129 mg/dL (74-106); POTASSIUM 3.5 mmol/L (3.5-5.1); SODIUM 127 mmol/L (136-145)
--- NOTE | 2018-09-01 19:06 | PN ---
Progress Note (short form) - Note Progress Note: Laboratory Tests 09/01/18 18:17 Sodium 127 L Potassium 3.5 Chloride 93 L Carbon Dioxide 24 Anion Gap 10 BUN 8 labs reviewed - give d5w at 100 cc for 2 hours and repeat labs Problem List - Problems (1) HTN (hypertension) Code(s): I10 - ESSENTIAL (PRIMARY) HYPERTENSION (2) Anemia Code(s): D64.9 - ANEMIA, UNSPECIFIED Qualifiers: Anemia type: unspecified type Qualified Code(s): D64.9 - Anemia, unspecified (3) Hyponatremia Code(s): E87.1 - HYPO-OSMOLALITY AND HYPONATREMIA (4) Syncope Code(s): R55 - SYNCOPE AND COLLAPSE Qualifiers: Syncope type: unspecified Qualified Code(s): R55 - Syncope and collapse
[2018-09-01] MEDS ORDERED: PT OWN MED DRAWER 7, Y5N ONE (21:47)
[2018-09-01] MEDS ORDERED: MELATONIN 5 MG TABLETS PO ONE (21:50)
[2018-09-01 22:05] LABS: ANION GAP 9 MMOL/L (8-16); BLOOD UREA NITROGEN 10 mg/dL (7-18); CALCIUM 8.8 mg/dL (8.5-10.1); CHLORIDE 94 mmol/L (98-107); CO2 24 mmol/L (21-32); GLUCOSE,RANDOM 160 mg/dL (74-106); POTASSIUM 3.8 mmol/L (3.5-5.1); SODIUM 127 mmol/L (136-145)
[2018-09-01] MEDS: CHLORHEXIDINE GLUCONATE 4% CLEANSER FOR DECOLONIZATION TP SCH (22:23)
[2018-09-01] MEDS: MAGNESIUM OXIDE 400 MG TABLET (FP) PO SCH (22:23)
[2018-09-01] MEDS ORDERED: hydrALAZINE HCL 25 MG TABLET (FP) PO ONE (22:47)
[2018-09-02 03:26] LABS: ANION GAP 9 MMOL/L (8-16); BLOOD UREA NITROGEN 10 mg/dL (7-18); CALCIUM 8.4 mg/dL (8.5-10.1); CHLORIDE 92 mmol/L (98-107); CO2 23 mmol/L (21-32); CREATININE 0.9 mg/dL (0.55-1.3); GLUCOSE,RANDOM 144 mg/dL (74-106); POTASSIUM 3.5 mmol/L (3.5-5.1); SODIUM 124 mmol/L (136-145)
[2018-09-02 05:11] LABS: SERUM IRON SATURATION 3 % (15-55); TOTAL IRON BINDING CAPACITY 387 ug/dL (250-450); UIBC 375 ug/dL (111-343)
[2018-09-02 06:54] LABS: BASO % 0.9 % (0-2.0); HEMOGLOBIN 8.6 GM/dL (11.7-16.9); LYMPH % 14.2 % (8-40); MCHC 31.8 g/dl (32.0-35.9); MEAN CELL VOLUME 58.7 fl (80-96); MEAN PLT VOLUME 8.2 fl (7.5-11.1); NEUT % 70.9 % (42.8-82.8); PLATELET COUNT 328 K/MM3 (134-434); RBC 4.61 M/mm3 (4.00-5.60); RDW 23.9 % (11.9-15.9); WHITE BLOOD COUNT 7.1 K/mm3 (4.0-10.0)
[2018-09-02] MEDS ORDERED: metFORMIN HCL 500 MG TABLET (FP) PO SCH (07:00)
[2018-09-02 07:01] LABS: MCH 18.7 pg (25.7-33.7)
[2018-09-02 07:12] LABS: ANION GAP 9 MMOL/L (8-16); BLOOD UREA NITROGEN 9 mg/dL (7-18); CALCIUM 8.5 mg/dL (8.5-10.1); CHLORIDE 91 mmol/L (98-107); CO2 24 mmol/L (21-32); CREATININE 0.8 mg/dL (0.55-1.3); GLUCOSE,RANDOM 126 mg/dL (74-106); MAGNESIUM 1.9 mg/dL (1.8-2.4); PHOSPHOROUS 3.1 mg/dL (2.5-4.9); POTASSIUM 3.5 mmol/L (3.5-5.1); SODIUM 124 mmol/L (136-145)
[2018-09-02] MEDS: INSULIN SLIDING SCALE (NOVOLOG) 1 VIAL SQ SCH ×4 (07:23→22:00)
[2018-09-02] MEDS ORDERED: SODIUM CHLORIDE 1,000 ML IV SCH ×2 (08:00→09:45)
[2018-09-02] MEDS ORDERED: PT OWN MED DRAWER 7, Y5N ONE ×2 (09:51→22:01)
--- NOTE | 2018-09-02 09:56 | PN ---
Teaching Attending Note Name of Resident: Parish Guzman ATTENDING PHYSICIAN STATEMENT I saw and evaluated the patient. I reviewed the resident's note and discussed the case with the resident. I agree with the resident's findings and plan as documented. SUBJECTIVE: Mr Koo is without complaint. Denies cp, sob, n/v. OBJECTIVE: Last Vital Signs Temp Pulse Resp BP Pulse Ox 37.0 C 69 27 H 158/84 100 09/02/18 06:00 09/02/18 08:00 09/02/18 08:00 09/02/18 08:00 09/02/18 08:32 Gen: nad Pulm: ctab w/o w/r/r CV: rrr w/o m/r/g Abd: +bs, s/nt/nd Ext: no c/c/e CBC, BMP 09/02/18 05:30 09/02/18 05:30 ASSESSMENT AND PLAN: (1) Hyponatremia Assessment/Plan: -case d/w Dr Aquino -improved with hypertonic saline -needed D5W for short time -correcting at appropriate rate Code(s): E87.1 - HYPO-OSMOLALITY AND HYPONATREMIA (2) Syncope Assessment/Plan: -has not recurred -carotid ultrasound reviewed -ECHO reviewed -continue fall risk precautions and PT consult Code(s): R55 - SYNCOPE AND COLLAPSE Qualifiers: Syncope type: unspecified Qualified Code(s): R55 - Syncope and collapse (3) Diabetes Assessment/Plan: -diabetic diet -continue metformin -FSBS and SSI -controlled Code(s): E11.9 - TYPE 2 DIABETES MELLITUS WITHOUT COMPLICATIONS (4) Anemia Assessment/Plan: -s/p transfusion -iron deficiency anemia Code(s): D64.9 - ANEMIA, UNSPECIFIED Qualifiers: Anemia type: unspecified type Qualified Code(s): D64.9 - Anemia, unspecified (5) HTN (hypertension) Assessment/Plan: -hold HCTZ -continue amlodipine and losartan Code(s): I10 - ESSENTIAL (PRIMARY) HYPERTENSION Problem List - Problems (1) Hyponatremia Code(s): E87.1 - HYPO-OSMOLALITY AND HYPONATREMIA (2) Syncope Code(s): R55 - SYNCOPE AND COLLAPSE Qualifiers: Syncope type: unspecified Qualified Code(s): R55 - Syncope and collapse (3) Diabetes Code(s): E11.9 - TYPE 2 DIABETES MELLITUS WITHOUT COMPLICATIONS (4) Anemia Code(s): D64.9 - ANEMIA, UNSPECIFIED Qualifiers: Anemia type: unspecified type Qualified Code(s): D64.9 - Anemia, unspecified (5) HTN (hypertension) Code(s): I10 - ESSENTIAL (PRIMARY) HYPERTENSION
[2018-09-02] MEDS: MAGNESIUM OXIDE 400 MG TABLET (FP) PO SCH ×2 (10:40→22:02)
[2018-09-02] MEDS: LOSARTAN POTASSIUM 50 MG TABLET (FP) PO SCH (10:40)
[2018-09-02] MEDS: amLODIPine BESYLATE 10 MG TABLET (FP) PO SCH (10:40)
[2018-09-02] MEDS: MUPIROCIN 2% TOPICAL OINTMENT FOR DECOLONIZATION NS SCH ×2 (10:42→22:02)
[2018-09-02] MEDS: FLUoxetine HCL 10 MG CAPSULE (FP) PO SCH (11:47)
--- NOTE | 2018-09-02 12:17 | PN ---
Progress Note (short form) - Note Progress Note: Progress Note HD# 2 SUBJECTIVE: No acute events overnight. Pt switched from hypertonic saline to D5W due to increase of serum Na. Pt states he is feeling well. OBJECTIVE: Vital signs 09/02/18 09/02/18 06:00 08:31 Temperature 98.6 F Pulse Rate 72 Respiratory 16 Rate Blood Pressure 144/80 O2 Sat by Pulse 100 Oximetry (%) Laboratory Tests 09/02/18 09/02/18 05:30 05:30 WBC 7.1 Hgb 8.6 L Hct 27.0 L Plt Count 328 Sodium 124 L Potassium 3.5 Chloride 91 L Carbon Dioxide 24 BUN 9 Creatinine 0.8 Random Glucose 126 H Calcium 8.5 Phosphorus 3.1 Magnesium 1.9 Lines: PIV Drains: None Supplemental Oxygen: yes 2L Physical Exams: General Appearance: Awake, Alert, NAD Lungs: Lungs Clear, Normal Breath Sounds. No Crackles, Rales, Rhonchi, Wheezing Heart: Regular Rhythm, Regular Rate. No JVD, Murmur, Gallops, Rubs Abdomen: Normal Bowel Sounds, Soft. No Guarding, Rebound, Tenderness Musculoskeletal: No CVA Tenderness Extremity: Normal Capillary Refill Integumentary: Pale, Dry, Warm Drips: NS Anti Infectives: None Active Medications: Medications Magnesium Oxide (Mag-Ox -) 400 mg PO BID [facility] Last Admin: 09/02/18 10:40 Dose: 400 mg Sodium Chloride (Normal Saline -) 1,000 mls @ 50 mls/hr IV ASDIR [facility] Stop: 09/03/18 09:31 Last Admin: 09/02/18 09:42 Dose: 50 mls/hr Mupirocin (Bactroban Ointment (For Decolonization) -) 1 applic NS BID [facility] Stop: 09/06/18 09:59 Last Admin: 09/02/18 10:42 Dose: 1 applic Losartan Potassium (Cozaar -) 50 mg PO DAILY [facility] Last Admin: 09/02/18 10:40 Dose: 50 mg Chlorhexidine Gluconate (Hibiclens For Decolonization -) 1 applic TP HS [facility] Last Admin: 09/01/18 22:23 Dose: 1 applic Iron Sucrose 200 mg/ Sodium (Chloride) 100 mls @ 100 mls/hr IVPB ONCE ONE Stop: 09/03/18 11:59 Amlodipine Besylate (Norvasc -) 10 mg PO DAILY [facility] Last Admin: 09/02/18 10:40 Dose: 10 mg Insulin Aspart (Novolog Vial Sliding Scale -) 1 vial SQ ACHS [facility]; Protocol Last Admin: 09/02/18 16:47 Dose: Not Given Fluoxetine HCl (Prozac -) 10 mg PO DAILY [facility] Last Admin: 09/02/18 11:47 Dose: 10 mg Acetaminophen (Tylenol -) 650 mg PO Q4H PRN PRN Reason: FEVER ASSESSMENT / PLAN: 73yo Male with PMH of HTN, DM, Anemia presenting to ICU for hypoosmolar hyponatremia and anemia. Hyponatremia attributed to fluoxetine and HCTZ use. Guaiac negative. Neuro (& Psych): -CT head negative for acute process. Pt alert and oriented. - No further workup needed Endocrine: -hypoosmolar hyponatremia -Na [address] on isotonic NS drip. -Nephrology on board -Will trend electrolytes -Cortisol levels pending -Insulin Cardiovascular: -HTN -Getting home meds. Withholding HCTZ Pulm / Resp: - Anemia and hyponatremia. May have malignancy - Will be monitored by primary team Gastrointestinal: -Guaiac negative. No GI bleed -Magnesium oxide Hematologic: -Symptomatic Anemia. -Received 3u PRBC. -Hgb increasing. Does not require further transfusions FEN: -Diabetic Diet Prophylaxis: -Withholding VTE prophylaxis 2/2 anemia Dispo: Na corrected, does not need to be on hypertonic saline drip. Anemia corrected. Stable for tele floor.
[2018-09-02 13:05] VITALS: BMI 20.5
--- NOTE | 2018-09-02 13:08 | CONSULT ---
Consultation: REQUESTING PROVIDER: CONSULT REQUEST: We have been asked to medically evaluate this patient for anemia. HISTORY OF PRESENT ILLNESS: This is a 73 yo M with PMH of HTN, DM, depression, who presented due to several episodes of syncope over the past 7 days, was found to be severely hyponatremiaic and hypoosmotic likely due to HCTZ and prozac use and was treated with hypertonic saline. Found to be anemic Hgb 6.9 with severe microcytosis and hypochromia MCV 60.2 MCH 18.8. Transfused 1 pack PRBC, MCV, MCH trending down after transfusion. CT abd/pelvis w/o signs of bleeding. Daughter has been diagnosed with mild anemia due to thalassemia, most likley Beta minor. he was first told about being anemic several years ago but never had symptoms until now. last colonoscopy/egd workup for anemia 1 yr ago wnl. remote history of light smoking but daily tobacco chewer. REVIEW OF SYSTEMS: CONSTITUTIONAL: Absent: fever, chills HEENT: Absent: rhinorrhea, nasal congestion, throat pain CARDIOVASCULAR: Absent: chest pain, palpitations, irregular heart rate, lightheadedness, peripheral edema RESPIRATORY: Absent: cough, shortness of breath, dyspnea with exertion, orthopnea, wheezing, stridor, hemoptysis GASTROINTESTINAL: Absent: abdominal pain, abdominal distension, nausea, vomiting, diarrhea, constipation, melena, hematochezia GENITOURINARY: Absent: dysuria, hematuria MUSCULOSKELETAL: Absent: myalgia, arthralgia SKIN: Absent: rash, itching, pallor HEMATOLOGIC/IMMUNOLOGIC: Absent: easy bleeding, easy bruising, lymphadenopathy, frequent infections ENDOCRINE: Absent: unexplained weight gain, unexplained weight loss NEUROLOGIC: Absent: headache, focal weakness or paresthesias PSYCHIATRIC: Absent: anxiety, depression PHYSICAL EXAMINATION Vital Signs - 24 hr 09/01/18 09/01/18 09/01/18 15:09 16:00 16:46 Temperature 98.6 F Pulse Rate 80 81 Respiratory 20 23 H Rate Blood Pressure 166/86 111/87 O2 Sat by Pulse 100 Oximetry (%) 09/01/18 09/01/18 09/01/18 18:33 20:00 21:00 Temperature Pulse Rate 81 Respiratory 23 H Rate Blood Pressure 151/76 O2 Sat by Pulse 100 100 Oximetry (%) 09/02/18 09/02/18 09/02/18 00:00 02:00 04:00 Temperature 98.2 F Pulse Rate 66 67 68 Respiratory 15 16 18 Rate Blood Pressure 138/68 157/77 150/73 O2 Sat by Pulse Oximetry (%) 09/02/18 09/02/18 09/02/18 06:00 08:00 08:31 Temperature 98.6 F Pulse Rate 72 69 Respiratory 16 27 H Rate Blood Pressure 144/80 158/84 O2 Sat by Pulse 100 Oximetry (%) 09/02/18 09/02/18 09/02/18 08:32 10:44 12:00 Temperature 98.0 F Pulse Rate 68 73 Respiratory 19 22 H Rate Blood Pressure 150/75 134/69 O2 Sat by Pulse 100 Oximetry (%) GENERAL: Awake, alert, and fully oriented, in no acute distress. HEAD: Normal with no signs of trauma. EYES: Pupils equal, round and reactive to light, extraocular movements intact, sclera anicteric, conjunctiva clear. EARS, NOSE, THROAT: Moist mucous membranes., no lesions on tongue NECK: supple LUNGS: Breath sounds equal, clear to auscultation bilaterally. HEART: Regular rate and rhythm, normal S1 and S2, grqade 2 systolic murmur ABDOMEN: Soft, nontender, not distended, normoactive bowel sounds, no guarding, no rebound, no masses. MUSCULOSKELETAL: No CVA tenderness. no bony deformity UPPER EXTREMITIES: No peripheral edema. LOWER EXTREMITIES: 2No calf tenderness. No peripheral edema. NEUROLOGICAL: Cranial nerves II-XII grossly intact. Normal speech. PSYCHIATRIC: Cooperative. Good eye contact. Appropriate mood and affect. SKIN: Warm, dry Laboratory Results - last 24 hr 09/01/18 09/01/18 09/01/18 05:20 12:30 17:05 WBC RBC Hgb Hct MCV MCH MCHC RDW Plt Count MPV Absolute Neuts (auto) Neutrophils % Lymphocytes % Monocytes % Eosinophils % Basophils % Nucleated RBC % Sodium 119 L* Potassium 3.6 Chloride 87 L Carbon Dioxide 22 Anion Gap 11 BUN 6 L Creatinine 0.7 Creat Clearance w eGFR 111.17 POC Glucometer 151 Random Glucose 132 H Calcium 8.7 Phosphorus Magnesium Iron 12 L TIBC 387 Iron Saturation 3 L 09/01/18 09/01/18 09/01/18 18:17 18:17 21:30 WBC 7.8 RBC 4.96 Hgb 9.3 L Hct 29.8 L D MCV 60.2 L D MCH 18.8 L MCHC 31.2 L RDW 24.1 H Plt Count 331 MPV 8.1 Absolute Neuts (auto) Neutrophils % Lymphocytes % Monocytes % Eosinophils % Basophils % Nucleated RBC % Sodium 127 L 127 L Potassium 3.5 3.8 Chloride 93 L 94 L Carbon Dioxide 24 24 Anion Gap 10 9 BUN 8 10 Creatinine 0.9 1.0 Creat Clearance w eGFR 83.18 73.66 POC Glucometer Random Glucose 129 H 160 H Calcium 8.3 L 8.8 Phosphorus Magnesium Iron TIBC Iron Saturation 09/01/18 09/02/18 09/02/18 21:31 02:15 05:30 WBC 7.1 RBC 4.61 Hgb 8.6 L Hct 27.0 L MCV 58.7 L MCH 18.7 L MCHC 31.8 L RDW 23.9 H Plt Count 328 MPV 8.2 Absolute Neuts (auto) 5.0 Neutrophils % 70.9 Lymphocytes % 14.2 Monocytes % 13.0 H Eosinophils % 1.0 Basophils % 0.9 Nucleated RBC % 0 Sodium 124 L Potassium 3.5 Chloride 92 L Carbon Dioxide 23 Anion Gap 9 BUN 10 Creatinine 0.9 Creat Clearance w eGFR 83.18 POC Glucometer 188 Random Glucose 144 H Calcium 8.4 L Phosphorus Magnesium Iron TIBC Iron Saturation 09/02/18 09/02/18 09/02/18 05:30 07:17 11:12 WBC RBC Hgb Hct MCV MCH MCHC RDW Plt Count MPV Absolute Neuts (auto) Neutrophils % Lymphocytes % Monocytes % Eosinophils % Basophils % Nucleated RBC % Sodium 124 L Potassium 3.5 Chloride 91 L Carbon Dioxide 24 Anion Gap 9 BUN 9 Creatinine 0.8 Creat Clearance w eGFR 95.30 POC Glucometer 181 145 Random Glucose 126 H Calcium 8.5 Phosphorus 3.1 Magnesium 1.9 Iron TIBC Iron Saturation Active Medications Generic Name Dose Route Start Last Admin Trade Name Freq PRN Reason Stop Dose Admin Acetaminophen 650 mg 09/01/18 14:40 Tylenol - PO Q4H PRN FEVER Amlodipine Besylate 10 mg 09/02/18 10:00 09/02/18 10:40 Norvasc - PO 10 mg DAILY [facility]ICA Administration Chlorhexidine Gluconate 1 applic 09/01/18 22:00 09/01/18 22:23 Hibiclens For Decolonization - TP 1 applic HS [facility]ICA Administration Fluoxetine HCl 10 mg 09/02/18 10:00 09/02/18 11:47 Prozac - PO 10 mg DAILY [facility] Administration Sodium Chloride 1,000 mls @ 83 mls/hr 09/02/18 08:00 09/02/18 08:17 Normal Saline - IV 83 mls/hr ASDIR [facility] Administration Sodium Chloride 1,000 mls @ 50 mls/hr 09/02/18 09:45 09/02/18 09:42 Normal Saline - IV 09/03/18 09:31 50 mls/hr ASDIR [facility] Administration Insulin Aspart 1 vial 09/01/18 16:30 09/02/18 11:41 Novolog Vial Sliding Scale - SQ Not Given ACHS [facility] Protocol Losartan Potassium 50 mg 09/02/18 10:00 09/02/18 10:40 Cozaar - PO 50 mg DAILY [facility] Administration Magnesium Oxide 400 mg 09/01/18 22:00 09/02/18 10:40 Mag-Ox - PO 400 mg BID [facility] Administration Mupirocin 1 applic 09/01/18 10:00 09/02/18 10:42 Bactroban Ointment (For Decolonization) - NS 09/06/18 09:59 1 applic BID [facility] Administration ASSESSMENT/PLAN: This is a 73 yo M with PMH of HTN, DM, depression, who presented due to several episodes of syncope; anemic Hgb 6.9 with severe microcytosis and hypochromia MCV 60.2 MCH 18.8 and trending down after transfusion microcytic hypochromic anemia HCV MCH trending down s/p transfusion r/o thalassemia, r/o gi source of bleed ( low iron) hgb trending down s/p transfusion may be dilutional, received about 2 L fluid hypoosmolar hyponatremia HTN DM Depression -iron studies point to a source of bleed (low fe) that is bringing hgb below 11 typical of thalassemia; needs repeat gi workup with capsule endoscopy -f/u tfts -SPEP/UPEP -esr/crp -Hgb electrophoresis -further recs per renal and ICU team Dispo: We will continue to follow the patient. Thank you for this consultative opportunity. Visit type - Emergency Visit Emergency Visit: Yes ED Registration Date: 08/31/18 Care time: The patient presented to the Emergency Department on the above date and was hospitalized for further evaluation of their emergent condition. - New Patient This patient is new to me today: Yes Date on this admission: 09/02/18 - Critical Care Critical Care patient: Yes Total Critical Care Time (in minutes): 45 Critical Care Statement: The care of this patient involved high complexity decision making to prevent further life threatening deterioration of the patient 's condition and/or to evaluate & treat vital organ system(s) failure or risk of failure.
[2018-09-02 13:53] LABS: ANION GAP 9 MMOL/L (8-16); BLOOD UREA NITROGEN 10 mg/dL (7-18); CHLORIDE 92 mmol/L (98-107); CO2 23 mmol/L (21-32); GLUCOSE,RANDOM 223 mg/dL (74-106); POTASSIUM 3.4 mmol/L (3.5-5.1); SODIUM 124 mmol/L (136-145)
[2018-09-02] MEDS ORDERED: POTASSIUM CHLORIDE TABS 20 MEQ TABLET.ER (FP) PO ONE (13:53)
--- NOTE | 2018-09-02 13:56 | PN ---
Progress Note, Physician History of Present Illness: Pt seen and examined at bedside. He is awake and alert. He denies shortness of breath. - Current Medication List Current Medications: Active Medications Acetaminophen (Tylenol -) 650 mg PO Q4H PRN PRN Reason: FEVER Amlodipine Besylate (Norvasc -) 10 mg PO DAILY [facility] Last Admin: 09/02/18 10:40 Dose: 10 mg Chlorhexidine Gluconate (Hibiclens For Decolonization -) 1 applic TP HS [facility] Last Admin: 09/01/18 22:23 Dose: 1 applic Fluoxetine HCl (Prozac -) 10 mg PO DAILY [facility] Last Admin: 09/02/18 11:47 Dose: 10 mg Sodium Chloride (Normal Saline -) 1,000 mls @ 83 mls/hr IV ASDIR [facility] Last Admin: 09/02/18 08:17 Dose: 83 mls/hr Sodium Chloride (Normal Saline -) 1,000 mls @ 50 mls/hr IV ASDIR [facility] Stop: 09/03/18 09:31 Last Admin: 09/02/18 09:42 Dose: 50 mls/hr Insulin Aspart (Novolog Vial Sliding Scale -) 1 vial SQ [facility]; Protocol Last Admin: 09/02/18 11:41 Dose: Not Given Losartan Potassium (Cozaar -) 50 mg PO DAILY [facility] Last Admin: 09/02/18 10:40 Dose: 50 mg Magnesium Oxide (Mag-Ox -) 400 mg PO BID [facility] Last Admin: 09/02/18 10:40 Dose: 400 mg Mupirocin (Bactroban Ointment (For Decolonization) -) 1 applic NS BID [facility] Stop: 09/06/18 09:59 Last Admin: 09/02/18 10:42 Dose: 1 applic - Objective Vital Signs: Vital Signs Temperature 98.0 F 09/02/18 10:44 Pulse Rate 73 09/02/18 12:00 Respiratory Rate 22 H 09/02/18 12:00 Blood Pressure 134/69 09/02/18 12:00 O2 Sat by Pulse Oximetry (%) 100 09/02/18 08:32 Constitutional: Yes: Calm Eyes: Yes: Conjunctiva Clear HENT: Yes: Atraumatic Neck: Yes: Supple Cardiovascular: Yes: S1, S2 Respiratory: Yes: CTA Bilaterally Gastrointestinal: Yes: Normal Bowel Sounds, Soft Genitourinary: Yes: WNL Musculoskeletal: Yes: WNL Edema: No Neurological: Yes: Oriented Psychiatric: Yes: Oriented Labs: CBC, BMP 09/02/18 05:30 09/02/18 12:58 INR, PTT INR 1.15 (0.83-1.09) H 08/31/18 13:40 Problem List - Problems (1) HTN (hypertension) Code(s): I10 - ESSENTIAL (PRIMARY) HYPERTENSION (2) Anemia Code(s): D64.9 - ANEMIA, UNSPECIFIED Qualifiers: Anemia type: unspecified type Qualified Code(s): D64.9 - Anemia, unspecified (3) Hyponatremia Code(s): E87.1 - HYPO-OSMOLALITY AND HYPONATREMIA (4) Syncope Code(s): R55 - SYNCOPE AND COLLAPSE Qualifiers: Syncope type: unspecified Qualified Code(s): R55 - Syncope and collapse Assessment/Plan Current Medications Generic Name Dose Route Start Last Admin Trade Name Freq PRN Reason Stop Dose Admin Acetaminophen 650 mg 09/01/18 14:40 Tylenol - PO Q4H PRN FEVER Amlodipine Besylate 10 mg 09/02/18 10:00 09/02/18 10:40 Norvasc - PO 10 mg DAILY [facility] Administration Chlorhexidine Gluconate 1 applic 09/01/18 22:00 09/01/18 22:23 Hibiclens For Decolonization - TP 1 applic HS [facility] Administration Fluoxetine HCl 10 mg 09/02/18 10:00 09/02/18 11:47 Prozac - PO 10 mg DAILY [facility] Administration Sodium Chloride 1,000 mls @ 83 mls/hr 09/02/18 08:00 09/02/18 08:17 Normal Saline - IV 83 mls/hr ASDIR [facility] Administration Sodium Chloride 1,000 mls @ 50 mls/hr 09/02/18 09:45 09/02/18 09:42 Normal Saline - IV 09/03/18 09:31 50 mls/hr ASDIR [facility] Administration Insulin Aspart 1 vial 09/01/18 16:30 09/02/18 11:41 Novolog Vial Sliding Scale - SQ Not Given ACHS [facility] Protocol Losartan Potassium 50 mg 09/02/18 10:00 09/02/18 10:40 Cozaar - PO 50 mg DAILY [facility] Administration Magnesium Oxide 400 mg 09/01/18 22:00 09/02/18 10:40 Mag-Ox - PO 400 mg BID [facility] Administration Mupirocin 1 applic 09/01/18 10:00 09/02/18 10:42 Bactroban Ointment (For Decolonization) - NS 09/06/18 09:59 1 applic BID [facility] Administration Potassium Chloride 40 meq 09/02/18 13:53 K-Dur - PO 09/02/18 13:54 ONCE ONE Impression 1. hyponatremia 2. HTN 3. DM 4. anemia 5. syncope Plan - restart saline - sodium is improving - avoid a change of greater than 10 meq in 24 hrs - discussed with ICU team - anemia workup per primary team
--- NOTE | 2018-09-02 14:15 | PN ---
Teaching Attending Note Name of Resident: Kinga Garcia ATTENDING PHYSICIAN STATEMENT I saw and evaluated the patient. I reviewed the resident's note and discussed the case with the resident. I agree with the resident's findings and plan as documented. SUBJECTIVE: Patient seen and examined in the ICU. Awake and alert. No CP or SOB. Intake & Output 08/30/18 08/31/18 09/01/18 09/02/18 23:59 23:59 23:59 23:59 Intake Total 1325 500 Output Total 2200 800 Balance -875 -300 Weight 160 lb 135 lb Last Vital Signs Temp Pulse Resp BP Pulse Ox 98.5 F 70 19 124/65 100 09/02/18 14:00 09/02/18 14:00 09/02/18 14:00 09/02/18 14:00 09/02/18 08:32 Active Medications Acetaminophen (Tylenol -) 650 mg PO Q4H PRN PRN Reason: FEVER Amlodipine Besylate (Norvasc -) 10 mg PO DAILY [facility] Last Admin: 09/02/18 10:40 Dose: 10 mg Chlorhexidine Gluconate (Hibiclens For Decolonization -) 1 applic TP HS [facility] Last Admin: 09/01/18 22:23 Dose: 1 applic Fluoxetine HCl (Prozac -) 10 mg PO DAILY [facility] Last Admin: 09/02/18 11:47 Dose: 10 mg Sodium Chloride (Normal Saline -) 1,000 mls @ 83 mls/hr IV ASDIR [facility] Last Admin: 09/02/18 08:17 Dose: 83 mls/hr Sodium Chloride (Normal Saline -) 1,000 mls @ 50 mls/hr IV ASDIR [facility] Stop: 09/03/18 09:31 Last Admin: 09/02/18 09:42 Dose: 50 mls/hr Insulin Aspart (Novolog Vial Sliding Scale -) 1 vial SQ ACHS [facility]; Protocol Last Admin: 09/02/18 11:41 Dose: Not Given Losartan Potassium (Cozaar -) 50 mg PO DAILY [facility] Last Admin: 09/02/18 10:40 Dose: 50 mg Magnesium Oxide (Mag-Ox -) 400 mg PO BID [facility] Last Admin: 09/02/18 10:40 Dose: 400 mg Mupirocin (Bactroban Ointment (For Decolonization) -) 1 applic NS BID [facility] Stop: 09/06/18 09:59 Last Admin: 09/02/18 10:42 Dose: 1 applic Constitutional: Yes: NAD Eyes: Yes: Conjunctiva Clear HENT: Yes: Atraumatic Neck: Yes: Supple Cardiovascular: Yes: S1, S2 Respiratory: Yes: CTA Bilaterally Gastrointestinal: Yes: Normal Bowel Sounds, Soft Genitourinary: Yes: WNL Musculoskeletal: Yes: WNL Edema: No Neurological: Yes: Oriented Psychiatric: Yes: Oriented Labs: Laboratory Results - last 24 hr 09/01/18 09/01/18 09/01/18 05:20 17:05 18:17 WBC RBC Hgb Hct MCV MCH MCHC RDW Plt Count MPV Absolute Neuts (auto) Neutrophils % Lymphocytes % Monocytes % Eosinophils % Basophils % Nucleated RBC % Sodium 127 L Potassium 3.5 Chloride 93 L Carbon Dioxide 24 Anion Gap 10 BUN 8 Creatinine 0.9 Creat Clearance w eGFR 83.18 POC Glucometer 151 Random Glucose 129 H Calcium 8.3 L Phosphorus Magnesium Iron 12 L TIBC 387 Iron Saturation 3 L 09/01/18 09/01/18 09/01/18 18:17 21:30 21:31 WBC 7.8 RBC 4.96 Hgb 9.3 L Hct 29.8 L D MCV 60.2 L D MCH 18.8 L MCHC 31.2 L RDW 24.1 H Plt Count 331 MPV 8.1 Absolute Neuts (auto) Neutrophils % Lymphocytes % Monocytes % Eosinophils % Basophils % Nucleated RBC % Sodium 127 L Potassium 3.8 Chloride 94 L Carbon Dioxide 24 Anion Gap 9 BUN 10 Creatinine 1.0 Creat Clearance w eGFR 73.66 POC Glucometer 188 Random Glucose 160 H Calcium 8.8 Phosphorus Magnesium Iron TIBC Iron Saturation 09/02/18 09/02/18 09/02/18 02:15 05:30 05:30 WBC 7.1 RBC 4.61 Hgb 8.6 L Hct 27.0 L MCV 58.7 L MCH 18.7 L MCHC 31.8 L RDW 23.9 H Plt Count 328 MPV 8.2 Absolute Neuts (auto) 5.0 Neutrophils % 70.9 Lymphocytes % 14.2 Monocytes % 13.0 H Eosinophils % 1.0 Basophils % 0.9 Nucleated RBC % 0 Sodium 124 L 124 L Potassium 3.5 3.5 Chloride 92 L 91 L Carbon Dioxide 23 24 Anion Gap 9 9 BUN 10 9 Creatinine 0.9 0.8 Creat Clearance w eGFR 83.18 95.30 POC Glucometer Random Glucose 144 H 126 H Calcium 8.4 L 8.5 Phosphorus 3.1 Magnesium 1.9 Iron TIBC Iron Saturation 09/02/18 09/02/18 09/02/18 07:17 11:12 12:58 WBC RBC Hgb Hct MCV MCH MCHC RDW Plt Count MPV Absolute Neuts (auto) Neutrophils % Lymphocytes % Monocytes % Eosinophils % Basophils % Nucleated RBC % Sodium 124 L Potassium 3.4 L Chloride 92 L Carbon Dioxide 23 Anion Gap 9 BUN 10 Creatinine 1.0 Creat Clearance w eGFR 73.66 POC Glucometer 181 145 Random Glucose 223 H Calcium 9.0 Phosphorus Magnesium Iron TIBC Iron Saturation Problem List - Problems (1) HTN (hypertension) Code(s): I10 - ESSENTIAL (PRIMARY) HYPERTENSION (2) Anemia Code(s): D64.9 - ANEMIA, UNSPECIFIED Qualifiers: Anemia type: unspecified type Qualified Code(s): D64.9 - Anemia, unspecified (3) Hyponatremia Code(s): E87.1 - HYPO-OSMOLALITY AND HYPONATREMIA (4) Syncope Code(s): R55 - SYNCOPE AND COLLAPSE Qualifiers: Syncope type: unspecified Qualified Code(s): R55 - Syncope and collapse Assessment/Plan Symptomatic Hyponatremia HTN DM Anemia Syncope Plan Fluid restriction Avoid a change of greater than 10 meq in 24 hrs O2 as needed Strict I & O Hold HCTZ Floor Dr Hu
--- NOTE | 2018-09-02 15:58 | ECHO ---
Name: TOMASA SAAB Exam:Adult Echocardiogram Study Date: 09/02/2018 03:01 PM Age: 73 yrs Reason For Study: SYNCOPE Height: 68 in Weight: 160 lb BSA: 1.9 m2 MMode/2D Measurements & Calculations IVSd: 0.89 cm Ao root diam: 3.4 cm LVIDd: 4.7 cm LA dimension: 3.3 cm LVIDs: 3.2 cm LVPWd: 0.76 cm EDV(Teich): 102.0 ml LVOT diam: 2.0 cm ESV(Teich): 41.9 ml Doppler Measurements & Calculations MV E max deni: 103.2 cm/sec Ao V2 max: 85.6 cm/sec MV A max deni: 78.0 cm/sec Ao max P.7 mmHg MV E/A: 1.3 Ao V2 mean: 104.0 cm/sec MV dec time: 0.17 sec Ao mean P.0 mmHg Ao V2 VTI: 33.2 cm KEILA(I,D): 2.3 cm2 AI P1/2t: 484.9 msec KEILA(V,D): 3.9 cm2 AI max deni: 433.0 cm/sec LV V1 max P.6 mmHg AI max P.0 mmHg LV V1 mean P.6 mmHg AI dec slope: 261.6 cm/sec2 LV V1 max: 107.5 cm/sec LV V1 mean: 75.1 cm/sec LV V1 VTI: 24.3 cm MR max deni: 432.5 cm/sec SV(LVOT): 75.7 ml MR max P.8 mmHg TR max deni: 239.4 cm/sec Med Peak E' Deni: 7.4 cm/sec TR max P.0 mmHg Med E/e': 13.9 Lat Peak E' Deni: 8.8 cm/sec Lat E/e': 11.8 Procedure A complete two-dimensional transthoracic echocardiogram was performed (2D, M-mode, Doppler and color flow Doppler). Left Ventricle The left ventricle is normal in size. Left ventricular systolic function is normal. Ejection Fraction = 55- 60%. No regional wall motion abnormalities noted. Right Ventricle The right ventricle is normal size. The right ventricular systolic function is normal. RV systolic TD I is 12 cm/s. Atria The left atrial size is normal. Right atrial size is normal. Mitral Valve There is mild mitral annular calcification. There is mild mitral regurgitation. Tricuspid Valve The tricuspid valve is normal in structure and function. There is mild tricuspid regurgitation. Pulmo nary artery systolic pressure is at least 29 mmHg assuming RA pressure of 3 mmHg. Aortic Valve The aortic valve is normal in structure and function. Mild aortic regurgitation. Pulmonic Valve The pulmonic valve is not well visualized. Great Vessels The aortic root is normal size. Pericardium/Pleura There is no pericardial effusion. Interpretation Summary The left ventricle is normal in size. Left ventricular systolic function is normal. No regional wall motion abnormalities noted. Ejection Fraction = 55-60%. The right ventricular systolic function is normal. The left atrial size is normal. Right atrial size is normal. There is mild mitral annular calcification. There is mild mitral regurgitation. There is mild tricuspid regurgitation. Pulmonary artery systolic pressure is at least 29 mmHg assuming RA pressure of 3 mmHg Mild aortic regurgitation. There is no pericardial effusion. Previous study is not available for comparison Aaron Bradford MD 09/02/2018 03:58 PM
--- NOTE | 2018-09-02 17:04 | PN ---
Teaching Attending Note Name of Resident: Ludy Olsen ATTENDING PHYSICIAN STATEMENT I saw and evaluated the patient. I reviewed the resident's note and discussed the case with the resident. I agree with the resident's findings and plan as documented. ASSESSMENT AND PLAN: 73 y/o patient with seere microcytic anemia, hyponatremia, wt. loss. He is visiting from [place] MCV 56/ iron sat 3% Suspect iron deficiency anemia and thalassemia trait. CT a/p w/ contrast shows small bowel thickening Patient reports recently normal colonoscopy Discussed with patient and his the need for further f/u with gi and further testing to ealuate small bowel thickening, r/o occult malignancy, gien wt. loss, aneia, CT findings check CT chest Dose iv iron hyponatremia per renal team discussed with PMD
--- NOTE | 2018-09-02 18:17 | PN ---
Physical Exam: SUBJECTIVE: Patient seen and examined at bedside. Feels well and offers no complaints currently. Would like to go back home as soon as possible. States he is only in [place] to sell his house and will be going to [place]. States his weight loss is after he had all his teeth removed (20 pound weight loss). OBJECTIVE: Vital Signs Temperature 98.5 F 09/02/18 14:00 Pulse Rate 74 09/02/18 16:00 Respiratory Rate 27 H 09/02/18 16:00 Blood Pressure 136/90 09/02/18 16:00 O2 Sat by Pulse Oximetry (%) 100 09/02/18 08:32 GENERAL: The patient is awake, alert, and fully oriented, in no acute distress. EYES: extraocular movements intact, sclera anicteric, conjunctiva clear. NECK: Trachea midline, full range of motion, LUNGS: Breath sounds equal, clear to auscultation bilaterally HEART: Regular rate and rhythm, S1, S2 ABDOMEN: Soft, nontender, nondistended, normoactive bowel sounds EXTREMITIES: warm, well-perfused, no edema. NEUROLOGICAL: Cranial nerves II through XII grossly intact. Normal speech PSYCH: Normal mood, normal affect. SKIN: Warm, dry Laboratory Results - last 24 hr 09/01/18 09/01/18 09/01/18 05:20 18:17 18:17 WBC 7.8 RBC 4.96 Hgb 9.3 L Hct 29.8 L D MCV 60.2 L D MCH 18.8 L MCHC 31.2 L RDW 24.1 H Plt Count 331 MPV 8.1 Absolute Neuts (auto) Neutrophils % Lymphocytes % Monocytes % Eosinophils % Basophils % Nucleated RBC % Sodium 127 L Potassium 3.5 Chloride 93 L Carbon Dioxide 24 Anion Gap 10 BUN 8 Creatinine 0.9 Creat Clearance w eGFR 83.18 POC Glucometer Random Glucose 129 H Calcium 8.3 L Phosphorus Magnesium Iron 12 L TIBC 387 Iron Saturation 3 L 09/01/18 09/01/18 09/02/18 21:30 21:31 02:15 WBC RBC Hgb Hct MCV MCH MCHC RDW Plt Count MPV Absolute Neuts (auto) Neutrophils % Lymphocytes % Monocytes % Eosinophils % Basophils % Nucleated RBC % Sodium 127 L 124 L Potassium 3.8 3.5 Chloride 94 L 92 L Carbon Dioxide 24 23 Anion Gap 9 9 BUN 10 10 Creatinine 1.0 0.9 Creat Clearance w eGFR 73.66 83.18 POC Glucometer 188 Random Glucose 160 H 144 H Calcium 8.8 8.4 L Phosphorus Magnesium Iron TIBC Iron Saturation 09/02/18 09/02/18 09/02/18 05:30 05:30 07:17 WBC 7.1 RBC 4.61 Hgb 8.6 L Hct 27.0 L MCV 58.7 L MCH 18.7 L MCHC 31.8 L RDW 23.9 H Plt Count 328 MPV 8.2 Absolute Neuts (auto) 5.0 Neutrophils % 70.9 Lymphocytes % 14.2 Monocytes % 13.0 H Eosinophils % 1.0 Basophils % 0.9 Nucleated RBC % 0 Sodium 124 L Potassium 3.5 Chloride 91 L Carbon Dioxide 24 Anion Gap 9 BUN 9 Creatinine 0.8 Creat Clearance w eGFR 95.30 POC Glucometer 181 Random Glucose 126 H Calcium 8.5 Phosphorus 3.1 Magnesium 1.9 Iron TIBC Iron Saturation 09/02/18 09/02/18 09/02/18 11:12 12:58 16:36 WBC RBC Hgb Hct MCV MCH MCHC RDW Plt Count MPV Absolute Neuts (auto) Neutrophils % Lymphocytes % Monocytes % Eosinophils % Basophils % Nucleated RBC % Sodium 124 L Potassium 3.4 L Chloride 92 L Carbon Dioxide 23 Anion Gap 9 BUN 10 Creatinine 1.0 Creat Clearance w eGFR 73.66 POC Glucometer 145 103 Random Glucose 223 H Calcium 9.0 Phosphorus Magnesium Iron TIBC Iron Saturation Active Medications Generic Name Dose Route Start Last Admin Trade Name Freq PRN Reason Stop Dose Admin Acetaminophen 650 mg 09/01/18 14:40 Tylenol - PO Q4H PRN FEVER Amlodipine Besylate 10 mg 09/02/18 10:00 09/02/18 10:40 Norvasc - PO 10 mg DAILY [facility] Administration Chlorhexidine Gluconate 1 applic 09/01/18 22:00 09/01/18 22:23 Hibiclens For Decolonization - TP 1 applic HS [facility] Administration Fluoxetine HCl 10 mg 09/02/18 10:00 09/02/18 11:47 Prozac - PO 10 mg DAILY [facility] Administration Sodium Chloride 1,000 mls @ 50 mls/hr 09/02/18 09:45 09/02/18 09:42 Normal Saline - IV 09/03/18 09:31 50 mls/hr ASDIR [facility] Administration Iron Sucrose 200 mg/ Sodium 100 mls @ 100 mls/hr 09/03/18 11:00 Chloride IVPB 09/03/18 11:59 ONCE ONE Insulin Aspart 1 vial 09/01/18 16:30 09/02/18 16:47 Novolog Vial Sliding Scale - SQ Not Given ACHS [facility] Protocol Losartan Potassium 50 mg 09/02/18 10:00 09/02/18 10:40 Cozaar - PO 50 mg DAILY [facility] Administration Magnesium Oxide 400 mg 09/01/18 22:00 09/02/18 10:40 Mag-Ox - PO 400 mg BID [facility] Administration Melatonin 5 mg 09/02/18 16:57 Melatonin PO HS PRN INSOMNIA Mupirocin 1 applic 09/01/18 10:00 09/02/18 10:42 Bactroban Ointment (For Decolonization) - NS 09/06/18 09:59 1 applic BID [facility] Administration ASSESSMENT/PLAN: 73 y/o M w/PMH of HTN, HLD, anemia, DM presented to the ER for multiple episodes of syncope leading to falls over the last 2 weeks. Found to be anemic and severely hyponatremic. -Syncope secondary to hyponatremia and superimposed microcytic anemia -s/p 1 unit PRBC. Will continue to monitor H/H. Had EGD and colonoscopy in January 2018 in [place] and reports it as being negative. -FOBT negative and iron studies indicative of iron deficiency anemia -Heme consulted -Hyponatremia possibly secondary to hctz and prozac. HCTZ held and prozac is being tapered. -Continue with fluid restriction and NS @ 50 ml/hr -Nephrology following -Carotid U/S and Echo done. No episodes here. Fall precautions -DM -ISS, BGMs -HTN -hold hctz. C/w losartan, amlodipine -FEN -NS @ 50ml/hr -Hyponatremia, c/w IVF. Do not correct more than 10 in 24 hours -Diabetic diet -Dispo: can be transferred out of ICU to floors -Patient's brother also a physician wanted an update on patient. Called brother at 6:25PM but message on phone stated caller is not available. Phone number is [phone] Visit type - Emergency Visit Emergency Visit: Yes ED Registration Date: 08/31/18 Care time: The patient presented to the Emergency Department on the above date and was hospitalized for further evaluation of their emergent condition. - New Patient This patient is new to me today: Yes Date on this admission: 09/02/18 - Critical Care Critical Care patient: Yes Total Critical Care Time (in minutes): 40 Critical Care Statement: The care of this patient involved high complexity decision making to prevent further life threatening deterioration of the patient 's condition and/or to evaluate & treat vital organ system(s) failure or risk of failure.
[2018-09-02] MEDS ORDERED: IRON SUCROSE INJECTION 100 MG in SODIUM CHLORIDE 95 ML IVPB ONE (19:15)
[2018-09-02 19:31] LABS: ANION GAP 9 MMOL/L (8-16); BLOOD UREA NITROGEN 12 mg/dL (7-18); CHLORIDE 94 mmol/L (98-107); CO2 24 mmol/L (21-32); CREATININE 0.9 mg/dL (0.55-1.3); GLUCOSE,RANDOM 99 mg/dL (74-106); POTASSIUM 4.1 mmol/L (3.5-5.1); SODIUM 127 mmol/L (136-145)
[2018-09-02] MEDS: CHLORHEXIDINE GLUCONATE 4% CLEANSER FOR DECOLONIZATION TP SCH (22:02)
[2018-09-02] MEDS: MELATONIN 5 MG TABLETS PO PRN (22:02)
[2018-09-03 06:48] LABS: BASO % 1.2 % (0-2.0); EOS % 2.1 % (0-4.5); HEMATOCRIT 29.1 % (35.4-49); HEMOGLOBIN 8.9 GM/dL (11.7-16.9); LYMPH % 19.4 % (8-40); MCHC 30.8 g/dl (32.0-35.9); MEAN CELL VOLUME 60.2 fl (80-96); MEAN PLT VOLUME 8.1 fl (7.5-11.1); MONO % 11.3 % (3.8-10.2); PLATELET COUNT 346 K/MM3 (134-434); RBC 4.83 M/mm3 (4.00-5.60); WHITE BLOOD COUNT 7.5 K/mm3 (4.0-10.0)
[2018-09-03 06:52] LABS: MCH 18.5 pg (25.7-33.7)
[2018-09-03 07:06] LABS: RETICULOCYTES 2.51 % (0.5-1.5)
[2018-09-03 07:58] LABS: ANION GAP 9 MMOL/L (8-16); BLOOD UREA NITROGEN 11 mg/dL (7-18); CALCIUM 8.6 mg/dL (8.5-10.1); CHLORIDE 94 mmol/L (98-107); CO2 24 mmol/L (21-32); CREATININE 0.8 mg/dL (0.55-1.3); GLUCOSE,RANDOM 122 mg/dL (74-106); PHOSPHOROUS 3.7 mg/dL (2.5-4.9); POTASSIUM 3.9 mmol/L (3.5-5.1); SODIUM 127 mmol/L (136-145)
--- NOTE | 2018-09-03 08:09 | PN ---
Progress Note (short form) - Note Progress Note: For consultation and follow-up please contact Dr. Sawant.
[2018-09-03] MEDS ORDERED: PT OWN MED DRAWER 7, Y5N ONE ×2 (08:36→11:01)
[2018-09-03] MEDS: MAGNESIUM OXIDE 400 MG TABLET (FP) PO SCH ×2 (09:27→23:00)
[2018-09-03] MEDS: amLODIPine BESYLATE 10 MG TABLET (FP) PO SCH (09:27)
[2018-09-03] MEDS: FLUoxetine HCL 10 MG CAPSULE (FP) PO SCH (09:27)
[2018-09-03] MEDS: LOSARTAN POTASSIUM 50 MG TABLET (FP) PO SCH (09:27)
[2018-09-03] MEDS: MUPIROCIN 2% TOPICAL OINTMENT FOR DECOLONIZATION NS SCH ×2 (09:36→22:36)
[2018-09-03] MEDS: SODIUM CHLORIDE 1,000 ML IV SCH ×2 (10:08→20:00)
[2018-09-03] MEDS ORDERED: IRON SUCROSE INJECTION 200 MG in SODIUM CHLORIDE 90 ML IVPB ONE (11:00)
[2018-09-03] MEDS: INSULIN SLIDING SCALE (NOVOLOG) 1 VIAL SQ SCH ×4 (11:16→22:41)
--- NOTE | 2018-09-03 12:12 | PN ---
Teaching Attending Note Name of Resident: Kinga Garcia ATTENDING PHYSICIAN STATEMENT I saw and evaluated the patient. I reviewed the resident's note and discussed the case with the resident. I agree with the resident's findings and plan as documented. SUBJECTIVE: Patient seen and examined in the ICU. Awake and alert. No CP or SOB. Intake & Output 08/30/18 08/31/18 09/01/18 09/02/18 23:59 23:59 23:59 23:59 Intake Total 1325 500 Output Total 2200 800 Balance -875 -300 Weight 160 lb 135 lb Last Vital Signs Temp Pulse Resp BP Pulse Ox 98.5 F 70 19 124/65 100 09/02/18 14:00 09/02/18 14:00 09/02/18 14:00 09/02/18 14:00 09/02/18 08:32 Active Medications Acetaminophen (Tylenol -) 650 mg PO Q4H PRN PRN Reason: FEVER Amlodipine Besylate (Norvasc -) 10 mg PO DAILY [facility] Last Admin: 09/02/18 10:40 Dose: 10 mg Chlorhexidine Gluconate (Hibiclens For Decolonization -) 1 applic TP HS [facility] Last Admin: 09/01/18 22:23 Dose: 1 applic Fluoxetine HCl (Prozac -) 10 mg PO DAILY [facility] Last Admin: 09/02/18 11:47 Dose: 10 mg Sodium Chloride (Normal Saline -) 1,000 mls @ 83 mls/hr IV ASDIR [facility] Last Admin: 09/02/18 08:17 Dose: 83 mls/hr Sodium Chloride (Normal Saline -) 1,000 mls @ 50 mls/hr IV ASDIR [facility] Stop: 09/03/18 09:31 Last Admin: 09/02/18 09:42 Dose: 50 mls/hr Insulin Aspart (Novolog Vial Sliding Scale -) 1 vial SQ ACHS [facility]; Protocol Last Admin: 09/02/18 11:41 Dose: Not Given Losartan Potassium (Cozaar -) 50 mg PO DAILY [facility] Last Admin: 09/02/18 10:40 Dose: 50 mg Magnesium Oxide (Mag-Ox -) 400 mg PO BID [facility] Last Admin: 09/02/18 10:40 Dose: 400 mg Mupirocin (Bactroban Ointment (For Decolonization) -) 1 applic NS BID [facility] Stop: 09/06/18 09:59 Last Admin: 09/02/18 10:42 Dose: 1 applic Constitutional: Yes: NAD Eyes: Yes: Conjunctiva Clear HENT: Yes: Atraumatic Neck: Yes: Supple Cardiovascular: Yes: S1, S2 Respiratory: Yes: CTA Bilaterally Gastrointestinal: Yes: Normal Bowel Sounds, Soft Genitourinary: Yes: WNL Musculoskeletal: Yes: WNL Edema: No Neurological: Yes: Oriented Psychiatric: Yes: Oriented Labs: Laboratory Results - last 24 hr 09/01/18 09/01/18 09/01/18 05:20 17:05 18:17 WBC RBC Hgb Hct MCV MCH MCHC RDW Plt Count MPV Absolute Neuts (auto) Neutrophils % Lymphocytes % Monocytes % Eosinophils % Basophils % Nucleated RBC % Sodium 127 L Potassium 3.5 Chloride 93 L Carbon Dioxide 24 Anion Gap 10 BUN 8 Creatinine 0.9 Creat Clearance w eGFR 83.18 POC Glucometer 151 Random Glucose 129 H Calcium 8.3 L Phosphorus Magnesium Iron 12 L TIBC 387 Iron Saturation 3 L 09/01/18 09/01/18 09/01/18 18:17 21:30 21:31 WBC 7.8 RBC 4.96 Hgb 9.3 L Hct 29.8 L D MCV 60.2 L D MCH 18.8 L MCHC 31.2 L RDW 24.1 H Plt Count 331 MPV 8.1 Absolute Neuts (auto) Neutrophils % Lymphocytes % Monocytes % Eosinophils % Basophils % Nucleated RBC % Sodium 127 L Potassium 3.8 Chloride 94 L Carbon Dioxide 24 Anion Gap 9 BUN 10 Creatinine 1.0 Creat Clearance w eGFR 73.66 POC Glucometer 188 Random Glucose 160 H Calcium 8.8 Phosphorus Magnesium Iron TIBC Iron Saturation 09/02/18 09/02/18 09/02/18 02:15 05:30 05:30 WBC 7.1 RBC 4.61 Hgb 8.6 L Hct 27.0 L MCV 58.7 L MCH 18.7 L MCHC 31.8 L RDW 23.9 H Plt Count 328 MPV 8.2 Absolute Neuts (auto) 5.0 Neutrophils % 70.9 Lymphocytes % 14.2 Monocytes % 13.0 H Eosinophils % 1.0 Basophils % 0.9 Nucleated RBC % 0 Sodium 124 L 124 L Potassium 3.5 3.5 Chloride 92 L 91 L Carbon Dioxide 23 24 Anion Gap 9 9 BUN 10 9 Creatinine 0.9 0.8 Creat Clearance w eGFR 83.18 95.30 POC Glucometer Random Glucose 144 H 126 H Calcium 8.4 L 8.5 Phosphorus 3.1 Magnesium 1.9 Iron TIBC Iron Saturation 09/02/18 09/02/18 09/02/18 07:17 11:12 12:58 WBC RBC Hgb Hct MCV MCH MCHC RDW Plt Count MPV Absolute Neuts (auto) Neutrophils % Lymphocytes % Monocytes % Eosinophils % Basophils % Nucleated RBC % Sodium 124 L Potassium 3.4 L Chloride 92 L Carbon Dioxide 23 Anion Gap 9 BUN 10 Creatinine 1.0 Creat Clearance w eGFR 73.66 POC Glucometer 181 145 Random Glucose 223 H Calcium 9.0 Phosphorus Magnesium Iron TIBC Iron Saturation Problem List - Problems (1) HTN (hypertension) Code(s): I10 - ESSENTIAL (PRIMARY) HYPERTENSION (2) Anemia Code(s): D64.9 - ANEMIA, UNSPECIFIED Qualifiers: Anemia type: unspecified type Qualified Code(s): D64.9 - Anemia, unspecified (3) Hyponatremia Code(s): E87.1 - HYPO-OSMOLALITY AND HYPONATREMIA (4) Syncope Code(s): R55 - SYNCOPE AND COLLAPSE Qualifiers: Syncope type: unspecified Qualified Code(s): R55 - Syncope and collapse Assessment/Plan Symptomatic Hyponatremia HTN DM Anemia Syncope Small bowel non-specific wall thickening Plan Fluid restriction Avoid a change of greater than 10 meq in 24 hrs O2 as needed Strict I & O Hold HCTZ Floor Patient was advised to follow up with his GI doctor in [place] about the small bowel wall thickening. Requires further evaluation, with possible endoscopy. Copies of his CT imaging will be provided to the patient. Dr Hu
--- NOTE | 2018-09-03 12:43 | PN ---
Physical Exam: SUBJECTIVE: Patient seen and examined at bedside. Has no complaints today. Feels well. Would like to know when he can go home. OBJECTIVE: Vital Signs Temperature 98.0 F 09/03/18 10:00 Pulse Rate 76 09/03/18 12:00 Respiratory Rate 09/03/18 12:00 Blood Pressure 129/62 09/03/18 12:00 O2 Sat by Pulse Oximetry (%) 100 09/03/18 07:38 GENERAL: The patient is awake, alert, and fully oriented, in no acute distress. EYES: extraocular movements intact, sclera anicteric, conjunctiva clear. NECK: Trachea midline, full range of motion, LUNGS: Breath sounds equal, clear to auscultation bilaterally HEART: Regular rate and rhythm, S1, S2 ABDOMEN: Soft, nontender, nondistended, normoactive bowel sounds EXTREMITIES: warm, well-perfused, no edema. NEUROLOGICAL: Cranial nerves II through XII grossly intact. Normal speech PSYCH: Normal mood, normal affect. SKIN: Warm, dry Laboratory Results - last 24 hr 09/01/18 09/01/18 09/02/18 05:20 05:20 12:58 WBC RBC Hgb Hct MCV MCH MCHC RDW Plt Count MPV Absolute Neuts (auto) Neutrophils % Lymphocytes % Monocytes % Eosinophils % Basophils % Nucleated RBC % ESR Retic Count Sodium 124 L Potassium 3.4 L Chloride 92 L Carbon Dioxide 23 Anion Gap 9 BUN 10 Creatinine 1.0 Creat Clearance w eGFR 73.66 POC Glucometer Random Glucose 223 H Calcium 9.0 Phosphorus Magnesium Transferrin 308 Ferritin C-Reactive Protein Vitamin B12 TSH Free T4 Cortisol AM Sample 21.5 H Stool Occult Blood 09/02/18 09/02/18 09/02/18 16:36 17:30 22:00 WBC RBC Hgb Hct MCV MCH MCHC RDW Plt Count MPV Absolute Neuts (auto) Neutrophils % Lymphocytes % Monocytes % Eosinophils % Basophils % Nucleated RBC % ESR Retic Count Sodium 127 L Potassium 4.1 Chloride 94 L Carbon Dioxide 24 Anion Gap 9 BUN 12 Creatinine 0.9 Creat Clearance w eGFR 83.18 POC Glucometer 103 Random Glucose 99 Calcium 9.0 Phosphorus Magnesium Transferrin Ferritin C-Reactive Protein Vitamin B12 TSH Free T4 Cortisol AM Sample Stool Occult Blood Negative 09/02/18 09/03/18 09/03/18 22:16 05:30 05:30 WBC RBC Hgb Hct MCV MCH MCHC RDW Plt Count MPV Absolute Neuts (auto) Neutrophils % Lymphocytes % Monocytes % Eosinophils % Basophils % Nucleated RBC % ESR 11 Retic Count 2.51 H Sodium 127 L Potassium 3.9 Chloride 94 L Carbon Dioxide 24 Anion Gap 9 BUN 11 Creatinine 0.8 Creat Clearance w eGFR 95.30 POC Glucometer 156 Random Glucose 122 H Calcium 8.6 Phosphorus 3.7 Magnesium 2.0 Transferrin Ferritin 75.2 C-Reactive Protein 0.3 Vitamin B12 2496 H TSH 2.06 D Free T4 1.20 H Cortisol AM Sample Stool Occult Blood 09/03/18 09/03/18 09/03/18 05:30 05:41 11:14 WBC 7.5 RBC 4.83 Hgb 8.9 L Hct 29.1 L MCV 60.2 L MCH 18.5 L MCHC 30.8 L RDW 24.0 H Plt Count 346 MPV 8.1 Absolute Neuts (auto) 4.9 Neutrophils % 66.0 Lymphocytes % 19.4 D Monocytes % 11.3 H Eosinophils % 2.1 D Basophils % 1.2 Nucleated RBC % 0 ESR Retic Count Sodium Potassium Chloride Carbon Dioxide Anion Gap BUN Creatinine Creat Clearance w eGFR POC Glucometer 131 141 Random Glucose Calcium Phosphorus Magnesium Transferrin Ferritin C-Reactive Protein Vitamin B12 TSH Free T4 Cortisol AM Sample Stool Occult Blood Active Medications Generic Name Dose Route Start Last Admin Trade Name Andres PRN Reason Stop Dose Admin Acetaminophen 650 mg 09/01/18 14:40 Tylenol - PO Q4H PRN FEVER Amlodipine Besylate 10 mg 09/02/18 10:00 09/03/18 09:27 Norvasc - PO 10 mg DAILY [facility] Administration Chlorhexidine Gluconate 1 applic 09/01/18 22:00 09/02/18 22:02 Hibiclens For Decolonization - TP 1 applic HS [facility] Administration Fluoxetine HCl 10 mg 09/02/18 10:00 09/03/18 09:27 Prozac - PO 10 mg DAILY [facility] Administration Sodium Chloride 1,000 mls @ 100 mls/hr 09/03/18 09:45 09/03/18 10:08 Normal Saline - IV 100 mls/hr ASDIR [facility] Administration Insulin Aspart 1 vial 09/01/18 16:30 09/03/18 11:16 Novolog Vial Sliding Scale - SQ Not Given ACHS [facility] Protocol Losartan Potassium 50 mg 09/02/18 10:00 09/03/18 09:27 Cozaar - PO 50 mg DAILY [facility] Administration Magnesium Oxide 400 mg 09/01/18 22:00 09/03/18 09:27 Mag-Ox - PO 400 mg BID [facility] Administration Melatonin 5 mg 09/02/18 16:57 09/02/18 22:02 Melatonin PO 5 mg HS PRN Administration INSOMNIA Mupirocin 1 applic 09/01/18 10:00 09/03/18 09:36 Bactroban Ointment (For Decolonization) - NS 09/06/18 09:59 Not Given BID [facility] ASSESSMENT/PLAN: 73 y/o M w/PMH of HTN, HLD, anemia, DM presented to the ER for multiple episodes of syncope leading to falls over the last 2 weeks. Found to be anemic and severely hyponatremic. -Syncope secondary to hyponatremia and superimposed microcytic anemia -s/p 1 unit PRBC this admission. Will continue to monitor H/H. Had EGD and colonoscopy in January 2018 in [place] and reports it as being negative. His brother is bringing in the report today. -FOBT negative and iron studies indicative of iron deficiency anemia -Heme consulted -IV iron started -Hyponatremia possibly secondary to hctz and prozac. HCTZ held and prozac is being tapered. -Continue with fluid restriction and NS @ 100 ml/hr -Nephrology following -Carotid U/S and Echo done. No episodes here. Fall precautions -DM -ISS, BGMs -HTN -hold hctz. C/w losartan, amlodipine -FEN -NS @ 100 ml/hr -Hyponatremia, c/w IVF. Do not correct more than 10 in 24 hours -Diabetic diet -Dispo: can be transferred out of ICU to floors Spoke to his brother this AM and updated him on the patient with verbal consent from patient. Visit type - Emergency Visit Emergency Visit: Yes ED Registration Date: 08/31/18 Care time: The patient presented to the Emergency Department on the above date and was hospitalized for further evaluation of their emergent condition. - New Patient This patient is new to me today: No - Critical Care Critical Care patient: Yes Total Critical Care Time (in minutes): 38 Critical Care Statement: The care of this patient involved high complexity decision making to prevent further life threatening deterioration of the patient 's condition and/or to evaluate & treat vital organ system(s) failure or risk of failure.
[2018-09-03 13:12] LABS: ANION GAP 10 MMOL/L (8-16); BLOOD UREA NITROGEN 11 mg/dL (7-18); CHLORIDE 94 mmol/L (98-107); CO2 23 mmol/L (21-32); CREATININE 0.8 mg/dL (0.55-1.3); GLUCOSE,RANDOM 131 mg/dL (74-106); POTASSIUM 3.9 mmol/L (3.5-5.1); SODIUM 127 mmol/L (136-145)
--- NOTE | 2018-09-03 13:37 | PN ---
Physical Exam: SUBJECTIVE: Patient seen and examined. No acute events overnight. Pt sitting in chair, no active complaints. OBJECTIVE: Vital Signs Period Temp Pulse Resp BP Sys/[place] Pulse Ox Last 24 Hr 98.0 F-98.7 F 63-86 17-27 102-177/62-102 100-100 GENERAL: The patient is awake, alert, and fully oriented, in no acute distress. EYES: PERRL, extraocular movements intact, sclera anicteric, conjunctiva clear. No ptosis. LUNGS: Breath sounds equal, clear to auscultation bilaterally, no wheezes, no crackles, no accessory muscle use. HEART: Regular rate and rhythm, S1, S2 without murmur, rub or gallop. ABDOMEN: Soft, nontender, nondistended, normoactive bowel sounds, no guarding, no rebound, no hepatosplenomegaly, no masses. EXTREMITIES: 2+ pulses, warm, well-perfused, no edema. NEUROLOGICAL: Cranial nerves II through XII grossly intact. Normal speech, gait not observed. PSYCH: Normal mood, normal affect. SKIN: Warm, dry, normal turgor, no rashes or lesions noted Laboratory Results - last 24 hr 09/01/18 09/01/18 09/02/18 05:20 05:20 12:58 WBC RBC Hgb Hct MCV MCH MCHC RDW Plt Count MPV Absolute Neuts (auto) Neutrophils % Lymphocytes % Monocytes % Eosinophils % Basophils % Nucleated RBC % ESR Retic Count Sodium 124 L Potassium 3.4 L Chloride 92 L Carbon Dioxide 23 Anion Gap 9 BUN 10 Creatinine 1.0 Creat Clearance w eGFR 73.66 POC Glucometer Random Glucose 223 H Calcium 9.0 Phosphorus Magnesium Transferrin 308 Ferritin C-Reactive Protein Vitamin B12 TSH Free T4 Cortisol AM Sample 21.5 H Stool Occult Blood 09/02/18 09/02/18 09/02/18 16:36 17:30 22:00 WBC RBC Hgb Hct MCV MCH MCHC RDW Plt Count MPV Absolute Neuts (auto) Neutrophils % Lymphocytes % Monocytes % Eosinophils % Basophils % Nucleated RBC % ESR Retic Count Sodium 127 L Potassium 4.1 Chloride 94 L Carbon Dioxide 24 Anion Gap 9 BUN 12 Creatinine 0.9 Creat Clearance w eGFR 83.18 POC Glucometer 103 Random Glucose 99 Calcium 9.0 Phosphorus Magnesium Transferrin Ferritin C-Reactive Protein Vitamin B12 TSH Free T4 Cortisol AM Sample Stool Occult Blood Negative 09/02/18 09/03/18 09/03/18 22:16 05:30 05:30 WBC RBC Hgb Hct MCV MCH MCHC RDW Plt Count MPV Absolute Neuts (auto) Neutrophils % Lymphocytes % Monocytes % Eosinophils % Basophils % Nucleated RBC % ESR 11 Retic Count 2.51 H Sodium 127 L Potassium 3.9 Chloride 94 L Carbon Dioxide 24 Anion Gap 9 BUN 11 Creatinine 0.8 Creat Clearance w eGFR 95.30 POC Glucometer 156 Random Glucose 122 H Calcium 8.6 Phosphorus 3.7 Magnesium 2.0 Transferrin Ferritin 75.2 C-Reactive Protein 0.3 Vitamin B12 2496 H TSH 2.06 D Free T4 1.20 H Cortisol AM Sample Stool Occult Blood 09/03/18 09/03/18 09/03/18 05:30 05:41 11:14 WBC 7.5 RBC 4.83 Hgb 8.9 L Hct 29.1 L MCV 60.2 L MCH 18.5 L MCHC 30.8 L RDW 24.0 H Plt Count 346 MPV 8.1 Absolute Neuts (auto) 4.9 Neutrophils % 66.0 Lymphocytes % 19.4 D Monocytes % 11.3 H Eosinophils % 2.1 D Basophils % 1.2 Nucleated RBC % 0 ESR Retic Count Sodium Potassium Chloride Carbon Dioxide Anion Gap BUN Creatinine Creat Clearance w eGFR POC Glucometer 131 141 Random Glucose Calcium Phosphorus Magnesium Transferrin Ferritin C-Reactive Protein Vitamin B12 TSH Free T4 Cortisol AM Sample Stool Occult Blood 09/03/18 12:10 WBC RBC Hgb Hct MCV MCH MCHC RDW Plt Count MPV Absolute Neuts (auto) Neutrophils % Lymphocytes % Monocytes % Eosinophils % Basophils % Nucleated RBC % ESR Retic Count Sodium 127 L Potassium 3.9 Chloride 94 L Carbon Dioxide 23 Anion Gap 10 BUN 11 Creatinine 0.8 Creat Clearance w eGFR 95.30 POC Glucometer Random Glucose 131 H Calcium 9.0 Phosphorus Magnesium Transferrin Ferritin C-Reactive Protein Vitamin B12 TSH Free T4 Cortisol AM Sample Stool Occult Blood Active Medications Generic Name Dose Route Start Last Admin Trade Name Freq PRN Reason Stop Dose Admin Acetaminophen 650 mg 09/01/18 14:40 Tylenol - PO Q4H PRN FEVER Amlodipine Besylate 10 mg 09/02/18 10:00 09/03/18 09:27 Norvasc - PO 10 mg DAILY [facility] Administration Chlorhexidine Gluconate 1 applic 09/01/18 22:00 09/02/18 22:02 Hibiclens For Decolonization - TP 1 applic HS [facility] Administration Fluoxetine HCl 10 mg 09/02/18 10:00 09/03/18 09:27 Prozac - PO 10 mg DAILY [facility] Administration Sodium Chloride 1,000 mls @ 100 mls/hr 09/03/18 09:45 09/03/18 10:08 Normal Saline - IV 100 mls/hr ASDIR [facility] Administration Insulin Aspart 1 vial 09/01/18 16:30 09/03/18 11:16 Novolog Vial Sliding Scale - SQ Not Given ACHS [facility] Protocol Losartan Potassium 50 mg 09/02/18 10:00 09/03/18 09:27 Cozaar - PO 50 mg DAILY [facility] Administration Magnesium Oxide 400 mg 09/01/18 22:00 09/03/18 09:27 Mag-Ox - PO 400 mg BID [facility] Administration Melatonin 5 mg 09/02/18 16:57 09/02/18 22:02 Melatonin PO 5 mg HS PRN Administration INSOMNIA Mupirocin 1 applic 09/01/18 10:00 09/03/18 09:36 Bactroban Ointment (For Decolonization) - NS 09/06/18 09:59 Not Given BID [facility] ASSESSMENT/PLAN: 73yo Male with PMH of HTN, DM, Anemia presenting to ICU for hypoosmolar hyponatremia and anemia. Hyponatremia attributed to fluoxetine and HCTZ use. Guaiac negative. Neuro (& Psych): - No active issues - PT consulted for patient to walk Endocrine: -hypoosmolar hyponatremia -Na 124 from 116. Has had chronically low Na per old records -Nephrology on board: repeat urine studies, continue 0.9%NS drip avoid increase of 10meq/24h. No free water. - DC HCTZ. Titrate down Prozac -Will trend electrolytes -Cortisol level at time of draw elevated. -Insulin Cardiovascular: -HTN -Getting home meds. Withholding HCTZ Pulm / Resp: - Anemia and hyponatremia. May have malignancy - Will be monitored by primary team - CT chest ordered Gastrointestinal: -Guaiac negative. No GI bleed -Magnesium oxide -Mass identified in CT. Will f/u with primary GI. Hematologic: -Symptomatic Anemia likely 2/2 LUIS ENRIQUE. -Received 3u PRBC. -Hgb increasing. Does not require further transfusions -Getting iron transfusion. Iron studies pending FEN: -Diabetic Diet Prophylaxis: -Withholding VTE prophylaxis 2/2 anemia Dispo: Na corrected, does not need to be on hypertonic saline drip. Anemia corrected. Stable for floor. Visit type - Emergency Visit Emergency Visit: Yes ED Registration Date: 08/31/18 Care time: The patient presented to the Emergency Department on the above date and was hospitalized for further evaluation of their emergent condition. - New Patient This patient is new to me today: No - Critical Care Critical Care patient: Yes Total Critical Care Time (in minutes): 40 Critical Care Statement: The care of this patient involved high complexity decision making to prevent further life threatening deterioration of the patient 's condition and/or to evaluate & treat vital organ system(s) failure or risk of failure.
--- NOTE | 2018-09-03 13:57 | PN ---
Physical Exam: SUBJECTIVE: Patient seen and examined Patient resting in bed NAD, No acute events, afebrile and hemodynamically stable. enies cp, sob, fatigue, abdominal pain, bleeding. OBJECTIVE: Vital Signs Period Temp Pulse Resp BP Sys/[place] Pulse Ox Last 24 Hr 98.0 F-98.7 F 63-86 17-27 102-177/62-102 100-100 GENERAL: Awake, alert, and fully oriented, in no acute distress. HEAD: Normal with no signs of trauma. EYES: Pupils equal, round and reactive to light, extraocular movements intact, sclera anicteric, conjunctiva clear. EARS, NOSE, THROAT: Moist mucous membranes., no lesions on tongue NECK: supple LUNGS: Breath sounds equal, clear to auscultation bilaterally. HEART: Regular rate and rhythm, normal S1 and S2, grqade 2 systolic murmur ABDOMEN: Soft, nontender, not distended, normoactive bowel sounds, no guarding, no rebound, no masses. MUSCULOSKELETAL: No CVA tenderness. no bony deformity UPPER EXTREMITIES: No peripheral edema. LOWER EXTREMITIES: 2No calf tenderness. No peripheral edema. NEUROLOGICAL: Cranial nerves II-XII grossly intact. Normal speech. PSYCHIATRIC: Cooperative. Good eye contact. Appropriate mood and affect. SKIN: Warm, dry Laboratory Results - last 24 hr 09/01/18 09/01/18 09/02/18 05:20 05:20 16:36 WBC RBC Hgb Hct MCV MCH MCHC RDW Plt Count MPV Absolute Neuts (auto) Neutrophils % Lymphocytes % Monocytes % Eosinophils % Basophils % Nucleated RBC % ESR Retic Count Sodium Potassium Chloride Carbon Dioxide Anion Gap BUN Creatinine Creat Clearance w eGFR POC Glucometer 103 Random Glucose Calcium Phosphorus Magnesium Transferrin 308 Ferritin C-Reactive Protein Vitamin B12 TSH Free T4 Cortisol AM Sample 21.5 H Stool Occult Blood 09/02/18 09/02/18 09/02/18 17:30 22:00 22:16 WBC RBC Hgb Hct MCV MCH MCHC RDW Plt Count MPV Absolute Neuts (auto) Neutrophils % Lymphocytes % Monocytes % Eosinophils % Basophils % Nucleated RBC % ESR Retic Count Sodium 127 L Potassium 4.1 Chloride 94 L Carbon Dioxide 24 Anion Gap 9 BUN 12 Creatinine 0.9 Creat Clearance w eGFR 83.18 POC Glucometer 156 Random Glucose 99 Calcium 9.0 Phosphorus Magnesium Transferrin Ferritin C-Reactive Protein Vitamin B12 TSH Free T4 Cortisol AM Sample Stool Occult Blood Negative 09/03/18 09/03/18 09/03/18 05:30 05:30 05:30 WBC 7.5 RBC 4.83 Hgb 8.9 L Hct 29.1 L MCV 60.2 L MCH 18.5 L MCHC 30.8 L RDW 24.0 H Plt Count 346 MPV 8.1 Absolute Neuts (auto) 4.9 Neutrophils % 66.0 Lymphocytes % 19.4 D Monocytes % 11.3 H Eosinophils % 2.1 D Basophils % 1.2 Nucleated RBC % 0 ESR 11 Retic Count 2.51 H Sodium 127 L Potassium 3.9 Chloride 94 L Carbon Dioxide 24 Anion Gap 9 BUN 11 Creatinine 0.8 Creat Clearance w eGFR 95.30 POC Glucometer Random Glucose 122 H Calcium 8.6 Phosphorus 3.7 Magnesium 2.0 Transferrin Ferritin 75.2 C-Reactive Protein 0.3 Vitamin B12 2496 H TSH 2.06 D Free T4 1.20 H Cortisol AM Sample Stool Occult Blood 09/03/18 09/03/18 09/03/18 05:41 11:14 12:10 WBC RBC Hgb Hct MCV MCH MCHC RDW Plt Count MPV Absolute Neuts (auto) Neutrophils % Lymphocytes % Monocytes % Eosinophils % Basophils % Nucleated RBC % ESR Retic Count Sodium 127 L Potassium 3.9 Chloride 94 L Carbon Dioxide 23 Anion Gap 10 BUN 11 Creatinine 0.8 Creat Clearance w eGFR 95.30 POC Glucometer 131 141 Random Glucose 131 H Calcium 9.0 Phosphorus Magnesium Transferrin Ferritin C-Reactive Protein Vitamin B12 TSH Free T4 Cortisol AM Sample Stool Occult Blood Active Medications Generic Name Dose Route Start Last Admin Trade Name Andres PRN Reason Stop Dose Admin Acetaminophen 650 mg 09/01/18 14:40 Tylenol - PO Q4H PRN FEVER Amlodipine Besylate 10 mg 09/02/18 10:00 09/03/18 09:27 Norvasc - PO 10 mg DAILY [facility] Administration Chlorhexidine Gluconate 1 applic 09/01/18 22:00 09/02/18 22:02 Hibiclens For Decolonization - TP 1 applic HS [facility] Administration Fluoxetine HCl 10 mg 09/02/18 10:00 09/03/18 09:27 Prozac - PO 10 mg DAILY [facility] Administration Sodium Chloride 1,000 mls @ 100 mls/hr 09/03/18 09:45 09/03/18 10:08 Normal Saline - IV 100 mls/hr ASD[facility] Administration Insulin Aspart 1 vial 09/01/18 16:30 09/03/18 11:16 Novolog Vial Sliding Scale - SQ Not Given ACHS [facility] Protocol Losartan Potassium 50 mg 09/02/18 10:00 09/03/18 09:27 Cozaar - PO 50 mg DAILY [facility] Administration Magnesium Oxide 400 mg 09/01/18 22:00 09/03/18 09:27 Mag-Ox - PO 400 mg BID [facility] Administration Melatonin 5 mg 09/02/18 16:57 09/02/18 22:02 Melatonin PO 5 mg HS PRN Administration INSOMNIA Mupirocin 1 applic 09/01/18 10:00 09/03/18 09:36 Bactroban Ointment (For Decolonization) - NS 09/06/18 09:59 Not Given BID [facility] ASSESSMENT/PLAN: This is a 73 yo M with PMH of HTN, DM, depression, who presented due to several episodes of syncope; anemic Hgb 6.9 with severe microcytosis and hypochromia MCV 60.2 MCH 18.8 and trending down after transfusion microcytic hypochromic anemia HCV MCH trending down s/p transfusion r/o thalassemia, r/o gi source of bleed ( low iron) hgb trending down s/p transfusion may be dilutional, received about 2 L fluid hypoosmolar hyponatremia HTN DM Depression -iron studies point to a source of bleed (low fe) that is bringing hgb below 11 typical of thalassemia; needs repeat gi workup with capsule endoscopy; ctAP showed a thickened loop of small bowel; in setting aof anemia and 30 lb weight loss onc process needs to be ruled out -f/u tfts -SPEP/UPEP -esr 11 crp3 -Hgb electrophoresis -further recs per renal and ICU team Dispo: We will continue to follow the patient. Thank you for this consultative opportunity. Visit type - Emergency Visit Emergency Visit: Yes ED Registration Date: 08/31/18 Care time: The patient presented to the Emergency Department on the above date and was hospitalized for further evaluation of their emergent condition. - New Patient This patient is new to me today: No - Critical Care Critical Care patient: Yes Total Critical Care Time (in minutes): 45 Critical Care Statement: The care of this patient involved high complexity decision making to prevent further life threatening deterioration of the patient 's condition and/or to evaluate & treat vital organ system(s) failure or risk of failure. - Discharge Referral Referred to [facility] No
--- NOTE | 2018-09-03 14:24 | PN ---
Progress Note, Physician History of Present Illness: Pt seen and examined at bedside. He is awake and alert. He denies shortness of breath. - Current Medication List Current Medications: Active Medications Acetaminophen (Tylenol -) 650 mg PO Q4H PRN PRN Reason: FEVER Amlodipine Besylate (Norvasc -) 10 mg PO DAILY [facility] Last Admin: 09/03/18 09:27 Dose: 10 mg Chlorhexidine Gluconate (Hibiclens For Decolonization -) 1 applic TP HS [facility] Last Admin: 09/02/18 22:02 Dose: 1 applic Fluoxetine HCl (Prozac -) 10 mg PO DAILY [facility] Last Admin: 09/03/18 09:27 Dose: 10 mg Sodium Chloride (Normal Saline -) 1,000 mls @ 100 mls/hr IV ASDIR [facility] Last Admin: 09/03/18 10:08 Dose: 100 mls/hr Insulin Aspart (Novolog Vial Sliding Scale -) 1 vial SQ ACHS [facility]; Protocol Last Admin: 09/03/18 11:16 Dose: Not Given Losartan Potassium (Cozaar -) 50 mg PO DAILY [facility] Last Admin: 09/03/18 09:27 Dose: 50 mg Magnesium Oxide (Mag-Ox -) 400 mg PO BID [facility] Last Admin: 09/03/18 09:27 Dose: 400 mg Melatonin (Melatonin) 5 mg PO HS PRN PRN Reason: INSOMNIA Last Admin: 09/02/18 22:02 Dose: 5 mg Mupirocin (Bactroban Ointment (For Decolonization) -) 1 applic NS BID [facility] Stop: 09/06/18 09:59 Last Admin: 09/03/18 09:36 Dose: Not Given - Objective Vital Signs: Vital Signs Temperature 98.0 F 09/03/18 10:00 Pulse Rate 76 09/03/18 12:00 Respiratory Rate 09/03/18 12:00 Blood Pressure 129/62 09/03/18 12:00 O2 Sat by Pulse Oximetry (%) 100 09/03/18 07:38 Constitutional: Yes: Calm Eyes: Yes: Conjunctiva Clear Cardiovascular: Yes: S1, S2 Respiratory: Yes: CTA Bilaterally Gastrointestinal: Yes: Soft Genitourinary: Yes: WNL Musculoskeletal: Yes: WNL Edema: No Neurological: Yes: Oriented Psychiatric: Yes: Oriented Labs: CBC, BMP 09/03/18 05:30 09/03/18 12:10 INR, PTT INR 1.15 (0.83-1.09) H 08/31/18 13:40 Problem List - Problems (1) HTN (hypertension) Code(s): I10 - ESSENTIAL (PRIMARY) HYPERTENSION (2) Anemia Code(s): D64.9 - ANEMIA, UNSPECIFIED Qualifiers: Anemia type: unspecified type Qualified Code(s): D64.9 - Anemia, unspecified (3) Hyponatremia Code(s): E87.1 - HYPO-OSMOLALITY AND HYPONATREMIA (4) Syncope Code(s): R55 - SYNCOPE AND COLLAPSE Qualifiers: Syncope type: unspecified Qualified Code(s): R55 - Syncope and collapse Assessment/Plan Current Medications Generic Name Dose Route Start Last Admin Trade Name Freq PRN Reason Stop Dose Admin Acetaminophen 650 mg 09/01/18 14:40 Tylenol - PO Q4H PRN FEVER Amlodipine Besylate 10 mg 09/02/18 10:00 09/03/18 09:27 Norvasc - PO 10 mg DAILY [facility] Administration Chlorhexidine Gluconate 1 applic 09/01/18 22:00 09/02/18 22:02 Hibiclens For Decolonization - TP 1 applic HS [facility] Administration Fluoxetine HCl 10 mg 09/02/18 10:00 09/03/18 09:27 Prozac - PO 10 mg DAILY [facility] Administration Sodium Chloride 1,000 mls @ 100 mls/hr 09/03/18 09:45 09/03/18 10:08 Normal Saline - IV 100 mls/hr ASDIR [facility] Administration Insulin Aspart 1 vial 09/01/18 16:30 09/03/18 11:16 Novolog Vial Sliding Scale - SQ Not Given ACHS [facility] Protocol Losartan Potassium 50 mg 09/02/18 10:00 09/03/18 09:27 Cozaar - PO 50 mg DAILY [facility] Administration Magnesium Oxide 400 mg 09/01/18 22:00 09/03/18 09:27 Mag-Ox - PO 400 mg BID [facility] Administration Melatonin 5 mg 09/02/18 16:57 09/02/18 22:02 Melatonin PO 5 mg HS PRN Administration INSOMNIA Mupirocin 1 applic 09/01/18 10:00 09/03/18 09:36 Bactroban Ointment (For Decolonization) - NS 09/06/18 09:59 Not Given BID [facility] Impression 1. hyponatremia 2. HTN 3. DM 4. anemia 5. syncope Plan - brought in labs, he had a sodium 125 in may - repeat urine studies - titrate down prozac, consider alternate agent - pt off of thiazide - cont saline for now - restrict free water - avoid a change of greater than 10 meq in 24 hrs - discussed with ICU team - anemia workup per primary team
--- NOTE | 2018-09-03 16:45 | CON.GI ---
Consult Consult Specialty:: GI Referred by:: Dr. Mitch Oswald Reason for Consultation:: Anemia - History of Present Illness Chief Complaint: Weakness History of Present Illness: 73M admitted for evaluation of weakness. He was noted to be hyponatremic and anemic. He has a history of anemia. His iron saturation is 3%. He was evaluated by heme/onc who felt this was a picture of thalassemia and iron deficiency. IV contrast CT scan of the abdomen raised the question of thickening vs. underdistention of a small bowel loop in the left abdomen. He underwent EGD / Colonoscopy in [place], [place] 06/17, performed by Dr. Yesy Anderson that revealed sigmoid diverticulosis. Findings from the upper endoscopy report were not available (patient's provided the discharge summary and pictures of the procedures on her cell phone). He denies rectal bleeding or melena. His states that he complains of epigastric pain as well as early satiey over the last 2 weeks. He currently denies these complaints. There has been no unintentional weight loss. There is no family history of colorectal cancer or other GI malignancy. He is being evaluated by nephrology, hematology. He received 1 U prbc. - History Source History Provided By: Patient, Family Member, Medical Record - Past Medical History Cardio/Vascular: Yes: HTN Hepatobiliary: Yes: Other (Episode of jaundice and either hepatitis A or B in the 70's) Psych: Yes: Other (? personalitu d/o) Endocrine: Yes: Diabetes Mellitus (DM II) - Past Surgical History Past Surgical History: Yes: None - Alcohol/Substance Use Hx Alcohol Use: Yes (4 drinks of vodka a day) Number of Drinks Daily: 4 History of Substance Use: reports: None - Smoking History Have you smoked in the past 12 months: No If you are a former smoker, when did you quit?: uses oral tobacco - Social History ADL: Family Assistance Occupation: Retired: worked in maintanance in hospital Place of : Other ([place]) Came to [place]year[place] 1975 History of Recent Travel: No Home Medications - Allergies Allergies/Adverse Reactions: Allergies Allergy/AdvReac Type Severity Reaction Status Date / Time No Known Allergies Allergy Verified 08/31/18 13:07 - Home Medications Home Medications: Ambulatory Orders Amlodipine Besylate [Norvasc -] 10 mg PO DAILY 08/31/18 Fluoxetine HCl [Prozac] 20 mg PO DAILY 08/31/18 Losartan/Hydrochlorothiazide [Losartan-Hctz 50-12.5 mg Tab] 1 each PO DAILY 08/16 Metformin HCl [Glucophage] 1,000 mg PO DAILY 08/31/18 Family Disease History - Family Disease History Family Disease History: Other: Father (: 84: lung Ca), Mother (: 50's: post op complications after cholecystectomy), Brother (3: all with Dm II), Daughter (1, healthy) Other Family History: No family history of colorectal cancer or other GI malignancy Review of Systems - Review of Systems Constitutional: denies: Chills, Fever, Unintentional Wgt. Loss Gastrointestinal: reports: Abdominal Pain (resolved). denies: Diarrhea, Dysphagia, Melena, Nausea, Rectal Bleeding, Vomiting Physical Exam-GI Vital Signs: Vital Signs Temperature 97.6 F 09/03/18 14:00 Pulse Rate 66 09/03/18 16:00 Respiratory Rate 18 09/03/18 16:00 Blood Pressure 144/72 09/03/18 16:00 O2 Sat by Pulse Oximetry (%) 100 09/03/18 07:38 Constitutional: Yes: Calm Eyes: No: Sclera Icterus Cardiovascular: Yes: Regular Rate and Rhythm. No: Murmur Respiratory: Yes: CTA Bilaterally Gastrointestinal Inspection: No: Distention, Scars ...Auscultate: Yes: Normoactive Bowel Sounds ...Palpate: Yes: Soft. No: Hepatomegaly, Splenomegaly, Tenderness ...Percussion: No: Tympanitic ...Rectal Exam: Yes: Other (External skin tags, No masses, light brown stool in rectal vault, guaiac negative, 2+ prostate) Edema: No (No LE edema) Neurological: Yes: Alert Labs: CBC, BMP 09/03/18 05:30 09/03/18 15:45 INR, PTT INR 1.15 (0.83-1.09) H 08/31/18 13:40 Imaging - Results Cat Scan: Report Reviewed, Image Reviewed Problem List - Problems (1) Anemia Assessment/Plan: Component of thalassemia / iron deficiency per heme. Guaiac negative on exam Continued heme evaluation Discussed options when lytes improved such as repeat EGD (paritcularly in the setting of recent early satiety and upper abdominal discomfort complaints)/ Colonoscopy and explained that capsule endoscopy as an outpatient could be undertaken. Also discussed having an inpatient small bowel series vs. CT enteroscopy performed to evaluate the small bowel findings noted on CT scan ( underdistention vs. thickening). They voice conferenced with their daughter when I had this conversation. They concluded that they would like to think about these options and may want to have things done as an outpatient in [place]. Code(s): D64.9 - ANEMIA, UNSPECIFIED Qualifiers: Anemia type: unspecified type Qualified Code(s): D64.9 - Anemia, unspecified (2) History of hepatitis Assessment/Plan: Check Screening hepatitis serologies Recall as needed or if decisions made regarding further inpatient GI evaluation Code(s): Z86.19 - PERSONAL HISTORY OF OTHER INFECTIOUS AND PARASITIC DISEASES
--- NOTE | 2018-09-03 20:03 | PN ---
Progress Note (short form) - Note Progress Note: Patient seen and examined Offers no complaints on ROS Last Vital Signs Temp Pulse Resp BP Pulse Ox 97.6 F 72 18 173/76 H 100 09/03/18 14:00 09/03/18 18:00 09/03/18 18:00 09/03/18 18:00 09/03/18 07:38 HEENT: HEAVEN, EOM Intact Oropharynx: No thrush, No mucositis Cor: RSR, No murmurs, No gallops Lungs: Clear to P&A Abd: Soft, Normal bowel sounds, No organomegaly Ext:No significant edema Skin: No rashes, Integument intact CBC, BMP 09/03/18 05:30 09/03/18 15:45 Current Medications Generic Name Dose Route Start Last Admin Trade Name Freq PRN Reason Stop Dose Admin Acetaminophen 650 mg 09/01/18 14:40 Tylenol - PO Q4H PRN FEVER Amlodipine Besylate 10 mg 09/02/18 10:00 09/03/18 09:27 Norvasc - PO 10 mg DAILY [facility] Administration Chlorhexidine Gluconate 1 applic 09/01/18 22:00 09/02/18 22:02 Hibiclens For Decolonization - TP 1 applic HS [facility] Administration Fluoxetine HCl 10 mg 09/02/18 10:00 09/03/18 09:27 Prozac - PO 10 mg DAILY [facility] Administration Sodium Chloride 1,000 mls @ 100 mls/hr 09/03/18 09:45 09/03/18 10:08 Normal Saline - IV 100 mls/hr ASDIR [facility] Administration Insulin Aspart 1 vial 09/01/18 16:30 09/03/18 16:34 Novolog Vial Sliding Scale - SQ Not Given ACHS [facility] Protocol Losartan Potassium 50 mg 09/02/18 10:00 09/03/18 09:27 Cozaar - PO 50 mg DAILY [facility] Administration Magnesium Oxide 400 mg 09/01/18 22:00 09/03/18 09:27 Mag-Ox - PO 400 mg BID [facility] Administration Melatonin 5 mg 09/02/18 16:57 09/02/18 22:02 Melatonin PO 5 mg HS PRN Administration INSOMNIA Mupirocin 1 applic 09/01/18 10:00 09/03/18 09:36 Bactroban Ointment (For Decolonization) - NS 09/06/18 09:59 Not Given BID [facility] 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 Awaiting Hb electrophresis
[2018-09-03 20:39] LABS: ANION GAP 8 MMOL/L (8-16); BLOOD UREA NITROGEN 10 mg/dL (7-18); CALCIUM 8.8 mg/dL (8.5-10.1); CHLORIDE 97 mmol/L (98-107); CO2 24 mmol/L (21-32); CREATININE 0.9 mg/dL (0.55-1.3); GLUCOSE,RANDOM 155 mg/dL (74-106); POTASSIUM 3.7 mmol/L (3.5-5.1); SODIUM 128 mmol/L (136-145)
--- NOTE | 2018-09-03 21:45 | PN ---
Teaching Attending Note Name of Resident: Parish Guzman ATTENDING PHYSICIAN STATEMENT I saw and evaluated the patient. I reviewed the resident's note and discussed the case with the resident. I agree with the resident's findings and plan as documented. SUBJECTIVE: Mr Koo is without complaint. No cp, sob, n/v OBJECTIVE: Last Vital Signs Temp Pulse Resp BP Pulse Ox 36.4 C 72 18 173/76 H 100 09/03/18 14:00 09/03/18 18:00 09/03/18 18:00 09/03/18 18:00 09/03/18 07:38 Gen: nad Pulm: ctab w/o w/r/r CV: rrr w/o m/r/g Abd: +bs, s/nt/nd Ext: no c/c/e CBC, BMP 09/03/18 05:30 09/03/18 19:30 ASSESSMENT AND PLAN: (1) Hyponatremia Assessment/Plan: -case d/w Dr Aquino -continue NS -? possible discharge tomorrow Code(s): E87.1 - HYPO-OSMOLALITY AND HYPONATREMIA (2) Syncope Assessment/Plan: -has not recurred Code(s): R55 - SYNCOPE AND COLLAPSE Qualifiers: Syncope type: unspecified Qualified Code(s): R55 - Syncope and collapse (3) Diabetes Assessment/Plan: -diabetic diet -continue metformin -FSBS and SSI -controlled Code(s): E11.9 - TYPE 2 DIABETES MELLITUS WITHOUT COMPLICATIONS (4) Anemia Assessment/Plan: -s/p transfusion -iron deficiency anemia Code(s): D64.9 - ANEMIA, UNSPECIFIED Qualifiers: Anemia type: unspecified type Qualified Code(s): D64.9 - Anemia, unspecified (5) HTN (hypertension) Assessment/Plan: -hold HCTZ -continue amlodipine and losartan Code(s): I10 - ESSENTIAL (PRIMARY) HYPERTENSION Problem List - Problems (1) Hyponatremia Code(s): E87.1 - HYPO-OSMOLALITY AND HYPONATREMIA (2) Syncope Code(s): R55 - SYNCOPE AND COLLAPSE Qualifiers: Syncope type: unspecified Qualified Code(s): R55 - Syncope and collapse (3) Diabetes Code(s): E11.9 - TYPE 2 DIABETES MELLITUS WITHOUT COMPLICATIONS (4) Anemia Code(s): D64.9 - ANEMIA, UNSPECIFIED Qualifiers: Anemia type: unspecified type Qualified Code(s): D64.9 - Anemia, unspecified (5) HTN (hypertension) Code(s): I10 - ESSENTIAL (PRIMARY) HYPERTENSION
[2018-09-03] MEDS: CHLORHEXIDINE GLUCONATE 4% CLEANSER FOR DECOLONIZATION TP SCH (22:36)
[2018-09-03] MEDS: MELATONIN 5 MG TABLETS PO PRN (22:36)
[2018-09-04] MEDS: INSULIN SLIDING SCALE (NOVOLOG) 1 VIAL SQ SCH ×2 (06:18→11:39)
[2018-09-04] MEDS ORDERED: amLODIPine BESYLATE 10 MG TABLET (FP) PO ONE (06:29)
[2018-09-04 06:39] LABS: BASO % 1.2 % (0-2.0); EOS % 3.3 % (0-4.5); HEMATOCRIT 28.6 % (35.4-49); HEMOGLOBIN 8.9 GM/dL (11.7-16.9); LYMPH % 15.1 % (8-40); MCHC 31.1 g/dl (32.0-35.9); MEAN CELL VOLUME 60.4 fl (80-96); MEAN PLT VOLUME 8.1 fl (7.5-11.1); MONO % 10.2 % (3.8-10.2); NEUT % 70.2 % (42.8-82.8); PLATELET COUNT 337 K/MM3 (134-434); RBC 4.74 M/mm3 (4.00-5.60); RDW 24.7 % (11.9-15.9); WHITE BLOOD COUNT 8.2 K/mm3 (4.0-10.0)
[2018-09-04 06:41] LABS: MCH 18.8 pg (25.7-33.7)
[2018-09-04 06:52] LABS: ALBUMIN 3.7 g/dl (3.4-5.0); CALCIUM 8.8 mg/dL (8.5-10.1); PHOSPHOROUS 3.5 mg/dL (2.5-4.9); POTASSIUM 3.9 mmol/L (3.5-5.1)
--- NOTE | 2018-09-04 07:09 | PN ---
Physical Exam: SUBJECTIVE: Patient seen and examined at bedside. No events overnight, no new complaints. OBJECTIVE: Vital Signs Period Temp Pulse Resp BP Sys/Gar[place] Pulse Ox Last 24 Hr 97.6 F-98.0 F 66-86 18-19 112-181/62-94 100-100 GENERAL: The patient is awake, alert, and fully oriented, in no acute distress. HEAD: Normal with no signs of trauma. NECK: Trachea midline, full range of motion, supple. LUNGS: Breath sounds equal, clear to auscultation bilaterally, no wheezes, no crackles, no accessory muscle use. HEART: Regular rate and rhythm, S1, S2 without murmur, rub or gallop. ABDOMEN: Soft, nontender, nondistended, normoactive bowel sounds, no guarding, no rebound, no hepatosplenomegaly, no masses. EXTREMITIES: 2+ pulses, warm, well-perfused, no edema. NEUROLOGICAL: Cranial nerves II through X grossly intact. Normal speech, gait not observed. SKIN: Warm, dry, normal turgor, no rashes or lesions noted Laboratory Results - last 24 hr 09/01/18 09/03/18 09/03/18 05:20 05:30 05:30 WBC RBC Hgb Hct MCV MCH MCHC RDW Plt Count MPV Absolute Neuts (auto) Neutrophils % Lymphocytes % Monocytes % Eosinophils % Basophils % Nucleated RBC % ESR 11 Retic Count 2.51 H Sodium 127 L Potassium 3.9 Chloride 94 L Carbon Dioxide 24 Anion Gap 9 BUN 11 Creatinine 0.8 Creat Clearance w eGFR 95.30 POC Glucometer Random Glucose 122 H Calcium 8.6 Phosphorus 3.7 Magnesium 2.0 Iron Transferrin 308 Ferritin 75.2 C-Reactive Protein 0.3 Albumin Vitamin B12 2496 H TSH 2.06 D Free T4 1.20 H Urine Osmolality 09/03/18 09/03/18 09/03/18 05:30 11:14 12:10 WBC RBC Hgb Hct MCV MCH MCHC RDW Plt Count MPV Absolute Neuts (auto) Neutrophils % Lymphocytes % Monocytes % Eosinophils % Basophils % Nucleated RBC % ESR Retic Count Sodium 127 L Potassium 3.9 Chloride 94 L Carbon Dioxide 23 Anion Gap 10 BUN 11 Creatinine 0.8 Creat Clearance w eGFR 95.30 POC Glucometer 141 Random Glucose 131 H Calcium 9.0 Phosphorus Magnesium Iron 397 H Transferrin Ferritin C-Reactive Protein Albumin Vitamin B12 TSH Free T4 Urine Osmolality 05/07/19 05/07/19 05/07/19 15:30 15:45 16:32 WBC RBC Hgb Hct MCV MCH MCHC RDW Plt Count MPV Absolute Neuts (auto) Neutrophils % Lymphocytes % Monocytes % Eosinophils % Basophils % Nucleated RBC % ESR Retic Count Sodium 129 L Potassium 4.0 Chloride 98 Carbon Dioxide 23 Anion Gap 9 BUN Creatinine Creat Clearance w eGFR POC Glucometer 131 Random Glucose Calcium Phosphorus Magnesium Iron Transferrin Ferritin C-Reactive Protein Albumin Vitamin B12 TSH Free T4 Urine Osmolality 517 09/03/18 09/03/18 09/04/18 19:30 22:40 05:30 WBC 8.2 RBC 4.74 Hgb 8.9 L Hct 28.6 L MCV 60.4 L MCH 18.8 L MCHC 31.1 L RDW 24.7 H Plt Count 337 MPV 8.1 Absolute Neuts (auto) 5.7 Neutrophils % 70.2 Lymphocytes % 15.1 D Monocytes % 10.2 Eosinophils % 3.3 Basophils % 1.2 Nucleated RBC % 0 ESR Retic Count Sodium 128 L Potassium 3.7 Chloride 97 L Carbon Dioxide 24 Anion Gap 8 BUN 10 Creatinine 0.9 Creat Clearance w eGFR 83.18 POC Glucometer 222 Random Glucose 155 H Calcium 8.8 Phosphorus Magnesium Iron Transferrin Ferritin C-Reactive Protein Albumin Vitamin B12 TSH Free T4 Urine Osmolality 09/04/18 09/04/18 05:30 06:16 WBC RBC Hgb Hct MCV MCH MCHC RDW Plt Count MPV Absolute Neuts (auto) Neutrophils % Lymphocytes % Monocytes % Eosinophils % Basophils % Nucleated RBC % ESR Retic Count Sodium 129 L Potassium 3.9 Chloride 96 L Carbon Dioxide 24 Anion Gap 9 BUN 8 Creatinine 0.7 Creat Clearance w eGFR POC Glucometer 136 Random Glucose 126 H Calcium 8.8 Phosphorus 3.5 Magnesium 2.0 Iron Transferrin Ferritin C-Reactive Protein Albumin 3.7 Vitamin B12 TSH Free T4 Urine Osmolality Active Medications Generic Name Dose Route Start Last Admin Trade Name Freq PRN Reason Stop Dose Admin Acetaminophen 650 mg 09/01/18 14:40 Tylenol - PO Q4H PRN FEVER Amlodipine Besylate 10 mg 09/02/18 10:00 09/03/18 09:27 Norvasc - PO 10 mg DAILY [facility] Administration Chlorhexidine Gluconate 1 applic 09/01/18 22:00 09/03/18 22:36 Hibiclens For Decolonization - TP 1 applic HS [facility] Administration Fluoxetine HCl 10 mg 09/02/18 10:00 09/03/18 09:27 Prozac - PO 10 mg DAILY [facility] Administration Sodium Chloride 1,000 mls @ 100 mls/hr 09/03/18 09:45 09/03/18 20:00 Normal Saline - IV 100 mls/hr ASDIR [facility] Administration Insulin Aspart 1 vial 09/01/18 16:30 09/04/18 06:18 Novolog Vial Sliding Scale - SQ Not Given ACHS [facility] Protocol Losartan Potassium 50 mg 09/02/18 10:00 09/03/18 09:27 Cozaar - PO 50 mg DAILY [facility] Administration Magnesium Oxide 400 mg 09/01/18 22:00 09/03/18 23:00 Mag-Ox - PO 400 mg BID [facility] Administration Melatonin 5 mg 09/02/18 16:57 09/03/18 22:36 Melatonin PO 5 mg HS PRN Administration INSOMNIA Mupirocin 1 applic 09/01/18 10:00 09/03/18 22:36 Bactroban Ointment (For Decolonization) - NS 09/06/18 09:59 1 applic BID [facility] Administration ASSESSMENT/PLAN: 73yo Male with PMH of HTN, DM, Anemia presenting to ICU for hypoosmolar hyponatremia and anemia. Hyponatremia attributed to fluoxetine and HCTZ use. Guaiac negative. Neuro (& Psych): - No active issues - PT consulted for patient to walk Endocrine: -hypoosmolar hyponatremia -Na 129 today. Has had chronically low Na per old records -Nephrology on board: NS @ 100; avoid Na increase >10meq/24hr -DC HCTZ. Titrate down Prozac -Will trend electrolytes and monitor Na -Insulin Cardiovascular: -HTN -c/w home norvasc -Withholding HCTZ Pulm / Resp: -Anemia and hyponatremia. May have malignancy -Will be monitored by primary team -CT chest ordered Gastrointestinal: -Guaiac negative. No GI bleed -Magnesium oxide -Mass identified in CT. Will f/u with primary GI. Hematologic: -Symptomatic Anemia likely 2/2 LUIS ENRIQUE. -s/p 3u PRBC this admission. -Iron low; s/p venofer infusion -maintain normal transfusion thresholds. FEN: -NS @ 100 -Diabetic Diet -monitoring sodium as above Prophylaxis: -Holding AC 2/2 Anemia Dispo: -stable for transfer to med-surg Visit type - Emergency Visit Emergency Visit: Yes ED Registration Date: 08/31/18 Care time: The patient presented to the Emergency Department on the above date and was hospitalized for further evaluation of their emergent condition. - New Patient This patient is new to me today: Yes Date on this admission: 09/08/18 - Critical Care Critical Care patient: No - Discharge Referral Referred to [facility] Med P.C.: No
[2018-09-04] MEDS ORDERED: PT OWN MED DRAWER 7, Y5N ONE (09:34)
[2018-09-04] MEDS: LOSARTAN POTASSIUM 50 MG TABLET (FP) PO SCH (09:56)
[2018-09-04] MEDS: MAGNESIUM OXIDE 400 MG TABLET (FP) PO SCH (09:56)
[2018-09-04] MEDS: SODIUM CHLORIDE 1,000 ML IV SCH (09:56)
[2018-09-04] MEDS: FLUoxetine HCL 10 MG CAPSULE (FP) PO SCH (09:56)
[2018-09-04] MEDS: MUPIROCIN 2% TOPICAL OINTMENT FOR DECOLONIZATION NS SCH (09:57)
[2018-09-04 10:11] LABS: CREATININE 0.7 mg/dL (0.55-1.3)
[2018-09-04 10:17] VITALS: TEMP 97.5
[2018-09-04 10:37] LABS: ANISOCYTOSIS 2+; MACROCYTOSIS 0; OVALOCYTE 1+; PLATELET ESTIMATE NORMAL
--- NOTE | 2018-09-04 11:30 | PN ---
Teaching Attending Note Name of Resident: Slade Jolly ATTENDING PHYSICIAN STATEMENT I saw and evaluated the patient. I reviewed the resident's note and discussed the case with the resident. I agree with the resident's findings and plan as documented. SUBJECTIVE: Pt seen and examined in the ICU. No current complaints. Wants to go home. OBJECTIVE: Vital Signs Period Temp Pulse Resp BP Sys/[place] Pulse Ox Last 24 Hr 97.5 F-97.8 F 66-77 18-19 125-181/62-99 100-100 Intake & Output 09/01/18 09/02/18 09/03/18 09/04/18 23:59 23:59 23:59 23:59 Intake Total 1325 1358 2100 1500 Output Total 2200 1300 1400 900 Balance -875 58 700 600 Weight 61.235 kg 61.292 kg 61.292 kg Gen: NAD at rest Heart: RRR Lung: decreased breath sounds at the bases Abd: soft, nontender Ext: no edema CBC, BMP 09/04/18 05:30 09/04/18 05:30 Active Medications Acetaminophen (Tylenol -) 650 mg PO Q4H PRN PRN Reason: FEVER Amlodipine Besylate (Norvasc -) 10 mg PO DAILY [facility] Last Admin: 09/03/18 09:27 Dose: 10 mg Chlorhexidine Gluconate (Hibiclens For Decolonization -) 1 applic TP HS [facility] Last Admin: 09/03/18 22:36 Dose: 1 applic Fluoxetine HCl (Prozac -) 10 mg PO DAILY [facility] Last Admin: 09/04/18 09:56 Dose: 10 mg Sodium Chloride (Normal Saline -) 1,000 mls @ 100 mls/hr IV ASDIR [facility] Last Admin: 09/04/18 09:56 Dose: 100 mls/hr Insulin Aspart (Novolog Vial Sliding Scale -) 1 vial SQ ACHS [facility]; Protocol Last Admin: 09/04/18 06:18 Dose: Not Given Losartan Potassium (Cozaar -) 50 mg PO DAILY [facility] Last Admin: 09/04/18 09:56 Dose: 50 mg Magnesium Oxide (Mag-Ox -) 400 mg PO BID [facility] Last Admin: 09/04/18 09:56 Dose: 400 mg Melatonin (Melatonin) 5 mg PO HS PRN PRN Reason: INSOMNIA Last Admin: 09/03/18 22:36 Dose: 5 mg Mupirocin (Bactroban Ointment (For Decolonization) -) 1 applic NS BID [facility] Stop: 09/06/18 09:59 Last Admin: 09/04/18 09:57 Dose: 1 applic ASSESSMENT AND PLAN: Symptomatic Hyponatremia HTN DM Anemia Syncope - fluid restriction - monitor lytes - PO as tolerated - DVT prophylaxis - can monitor on floor
--- NOTE | 2018-09-04 11:57 | PN ---
Progress Note, Physician History of Present Illness: Pt seen and examined at bedside. He is awake and alert. he denies shortness of breath. - Current Medication List Current Medications: Active Medications Acetaminophen (Tylenol -) 650 mg PO Q4H PRN PRN Reason: FEVER Amlodipine Besylate (Norvasc -) 10 mg PO DAILY [facility] Last Admin: 09/03/18 09:27 Dose: 10 mg Chlorhexidine Gluconate (Hibiclens For Decolonization -) 1 applic TP HS [facility] Last Admin: 09/03/18 22:36 Dose: 1 applic Fluoxetine HCl (Prozac -) 10 mg PO DAILY [facility] Last Admin: 09/04/18 09:56 Dose: 10 mg Sodium Chloride (Normal Saline -) 1,000 mls @ 100 mls/hr IV ASDIR [facility] Last Admin: 09/04/18 09:56 Dose: 100 mls/hr Insulin Aspart (Novolog Vial Sliding Scale -) 1 vial SQ ACHS [facility]; Protocol Last Admin: 09/04/18 11:39 Dose: Not Given Losartan Potassium (Cozaar -) 50 mg PO DAILY [facility] Last Admin: 09/04/18 09:56 Dose: 50 mg Magnesium Oxide (Mag-Ox -) 400 mg PO BID [facility] Last Admin: 09/04/18 09:56 Dose: 400 mg Melatonin (Melatonin) 5 mg PO HS PRN PRN Reason: INSOMNIA Last Admin: 09/03/18 22:36 Dose: 5 mg Mupirocin (Bactroban Ointment (For Decolonization) -) 1 applic NS BID [facility] Stop: 09/06/18 09:59 Last Admin: 09/04/18 09:57 Dose: 1 applic - Objective Vital Signs: Vital Signs Temperature 97.5 F L 09/04/18 10:00 Pulse Rate 75 09/04/18 10:00 Respiratory Rate 18 09/04/18 10:00 Blood Pressure 159/99 09/04/18 10:00 O2 Sat by Pulse Oximetry (%) 100 09/04/18 09:00 Constitutional: Yes: Calm Eyes: Yes: Conjunctiva Clear HENT: Yes: Atraumatic Cardiovascular: Yes: S1, S2 Respiratory: Yes: CTA Bilaterally Gastrointestinal: Yes: Soft Genitourinary: Yes: WNL Musculoskeletal: Yes: WNL Edema: No Neurological: Yes: Oriented Psychiatric: Yes: Oriented Labs: CBC, BMP 09/04/18 05:30 09/04/18 05:30 INR, PTT INR 1.15 (0.83-1.09) H 08/31/18 13:40 Problem List - Problems (1) HTN (hypertension) Code(s): I10 - ESSENTIAL (PRIMARY) HYPERTENSION (2) Anemia Code(s): D64.9 - ANEMIA, UNSPECIFIED Qualifiers: Anemia type: unspecified type Qualified Code(s): D64.9 - Anemia, unspecified (3) Hyponatremia Code(s): E87.1 - HYPO-OSMOLALITY AND HYPONATREMIA (4) Syncope Code(s): R55 - SYNCOPE AND COLLAPSE Qualifiers: Syncope type: unspecified Qualified Code(s): R55 - Syncope and collapse Assessment/Plan Current Medications Generic Name Dose Route Start Last Admin Trade Name Freq PRN Reason Stop Dose Admin Acetaminophen 650 mg 09/01/18 14:40 Tylenol - PO Q4H PRN FEVER Amlodipine Besylate 10 mg 09/02/18 10:00 09/03/18 09:27 Norvasc - PO 10 mg DAILY [facility] Administration Chlorhexidine Gluconate 1 applic 09/01/18 22:00 09/03/18 22:36 Hibiclens For Decolonization - TP 1 applic HS [facility] Administration Fluoxetine HCl 10 mg 09/02/18 10:00 09/04/18 09:56 Prozac - PO 10 mg DAILY [facility] Administration Sodium Chloride 1,000 mls @ 100 mls/hr 09/03/18 09:45 09/04/18 09:56 Normal Saline - IV 100 mls/hr ASDIR [facility] Administration Insulin Aspart 1 vial 09/01/18 16:30 09/04/18 11:39 Novolog Vial Sliding Scale - SQ Not Given ACHS [facility] Protocol Losartan Potassium 50 mg 09/02/18 10:00 09/04/18 09:56 Cozaar - PO 50 mg DAILY [facility] Administration Magnesium Oxide 400 mg 09/01/18 22:00 09/04/18 09:56 Mag-Ox - PO 400 mg BID [facility] Administration Melatonin 5 mg 09/02/18 16:57 09/03/18 22:36 Melatonin PO 5 mg HS PRN Administration INSOMNIA Mupirocin 1 applic 09/01/18 10:00 09/04/18 09:57 Bactroban Ointment (For Decolonization) - NS 05/10/19 09:59 1 applic BID [facility] Administration Impression 1. hyponatremia - chronic 2. HTN 3. DM 4. anemia 5. syncope Plan - sodium improving - increase losartan to 100 mg as bp is elevated - do not restart thiazide - consider changing prozac to alternate agent, dose was decreased to 10 mg - restrict free water - cont saline for now - restrict free water - discussed with ICU team - anemia workup per primary team
[2018-09-04] MEDS ORDERED: LOSARTAN POTASSIUM 50 MG TABLET (FP) PO SCH (13:15)
[2018-09-04 14:09] VITALS: BP 150/87; PULSE 80
--- NOTE | 2018-09-04 16:18 | PN ---
Teaching Attending Note Name of Resident: Parish Guzman ATTENDING PHYSICIAN STATEMENT I saw and evaluated the patient. I reviewed the resident's note and discussed the case with the resident. I agree with the resident's findings and plan as documented with exceptions below. SUBJECTIVE: patient seen and examined, feeling well no complaints, eager to go home. OBJECTIVE: Vital Signs Period Temp Pulse Resp BP Sys/Garland Pulse Ox Last 24 Hr 97.5 F-97.8 F 69-80 18-18 150-181/76-99 100-100 Intake & Output 09/01/18 09/02/18 09/03/18 09/04/18 23:59 23:59 23:59 23:59 Intake Total 1325 1358 2100 1740 Output Total 2200 1300 1400 900 Balance -875 58 700 840 Weight 135 lb 135 lb 2 oz 135 lb 2 oz General:sitting in chair in no acute distress Chest: CTAB, no rales or wheezing Abdomen:Soft, NT, ND, pos bowel sounds Extremities: no edema Home Medications Medication Instructions Recorded Amlodipine Besylate [Norvasc -] 10 mg PO DAILY 08/31/18 Metformin HCl [Glucophage] 1,000 mg PO DAILY 08/31/18 Fluoxetine HCl [Prozac -] 10 mg PO DAILY #30 capsule 09/04/18 Losartan Potassium [Cozaar -] 100 mg PO DAILY #60 tablet 09/04/18 Laboratory Results - last 24 hr 08/31/18 09/03/18 09/03/18 13:40 05:30 15:30 WBC RBC Hgb Hct MCV MCH MCHC RDW Plt Count MPV Absolute Neuts (auto) Neutrophils % Lymphocytes % Monocytes % Eosinophils % Basophils % Nucleated RBC % Hypochromia Platelet Estimate Polychromasia Poikilocytosis Anisocytosis Microcytosis Macrocytosis Ovalocytes Acanthocytes (Spur) Schistocytes Sodium Potassium Chloride Carbon Dioxide Anion Gap BUN Creatinine Creat Clearance w eGFR Est GFR (CKD-EPI)AfAm Est GFR (CKD-EPI)NonAf POC Glucometer Random Glucose Calcium Phosphorus Magnesium Iron 397 H Albumin Urine Osmolality 517 Blood Type AB POSITIVE Antibody Screen Negative Crossmatch See Detail 09/03/18 09/03/18 09/03/18 15:45 16:32 19:30 WBC RBC Hgb Hct MCV MCH MCHC RDW Plt Count MPV Absolute Neuts (auto) Neutrophils % Lymphocytes % Monocytes % Eosinophils % Basophils % Nucleated RBC % Hypochromia Platelet Estimate Polychromasia Poikilocytosis Anisocytosis Microcytosis Macrocytosis Ovalocytes Acanthocytes (Spur) Schistocytes Sodium 129 L 128 L Potassium 4.0 3.7 Chloride 98 97 L Carbon Dioxide 23 24 Anion Gap 9 8 BUN 10 Creatinine 0.9 Creat Clearance w eGFR 83.18 Est GFR (CKD-EPI)AfAm Est GFR (CKD-EPI)NonAf POC Glucometer 131 Random Glucose 155 H Calcium 8.8 Phosphorus Magnesium Iron Albumin Urine Osmolality Blood Type Antibody Screen Crossmatch 09/03/18 09/04/18 09/04/18 22:40 05:30 05:30 WBC 8.2 RBC 4.74 Hgb 8.9 L Hct 28.6 L MCV 60.4 L MCH 18.8 L MCHC 31.1 L RDW 24.7 H Plt Count 337 MPV 8.1 Absolute Neuts (auto) 5.7 Neutrophils % 70.2 Lymphocytes % 15.1 D Monocytes % 10.2 Eosinophils % 3.3 Basophils % 1.2 Nucleated RBC % 0 Hypochromia 2+ Platelet Estimate Normal Polychromasia 1+ Poikilocytosis 2+ Anisocytosis 2+ Microcytosis 2+ Macrocytosis 0 Ovalocytes 1+ Acanthocytes (Spur) 1+ Schistocytes 1+ Sodium 129 L Potassium 3.9 Chloride 96 L Carbon Dioxide 24 Anion Gap 9 BUN 8 Creatinine 0.7 Creat Clearance w eGFR Est GFR (CKD-EPI)AfAm 110.04 Est GFR (CKD-EPI)NonAf 94.95 POC Glucometer 222 Random Glucose 126 H Calcium 8.8 Phosphorus 3.5 Magnesium 2.0 Iron Albumin 3.7 Urine Osmolality Blood Type Antibody Screen Crossmatch 09/04/18 09/04/18 06:16 11:36 WBC RBC Hgb Hct MCV MCH MCHC RDW Plt Count MPV Absolute Neuts (auto) Neutrophils % Lymphocytes % Monocytes % Eosinophils % Basophils % Nucleated RBC % Hypochromia Platelet Estimate Polychromasia Poikilocytosis Anisocytosis Microcytosis Macrocytosis Ovalocytes Acanthocytes (Spur) Schistocytes Sodium Potassium Chloride Carbon Dioxide Anion Gap BUN Creatinine Creat Clearance w eGFR Est GFR (CKD-EPI)AfAm Est GFR (CKD-EPI)NonAf POC Glucometer 136 180 Random Glucose Calcium Phosphorus Magnesium Iron Albumin Urine Osmolality Blood Type Antibody Screen Crossmatch CT brain/chest/abdomen/Pelvis, carotid duplex, 2D echo results reviewed Telemetry with no events ASSESSMENT AND PLAN: 73 yom with HTN, HLD, depression admitted with multiple episodes of syncope/ falls, found with severe hyponatremia. -Severe hyponatremia, suspect in the setting of poor diet/excessive free water intake/HCTZ/Fluoxetine/ETOH abuse -HLD -Depression -Borderline right carotid bifurcation/bulb hemodynamically significant stenosis -Suspected interstitial lung disease, likely from tobacco use Plan: Na stable. discussed with Dr. Aquino. H/o chronic hypnatremia with baseline Na around 125-126. D/c HCTZ, increase losartan to 100 mg daily, continue norvasc. Fluoxetine decreased to 10 mg daily with eventual taper to off. Advised to restrict free water intake, ok for fluid with salt/solute Advised etoh/tobacco cessation. hematology/GI input noted, outpatient follow up, Needs hepatitis panel/SPEP/Hb electrophoresis results followed. Ongoing GI w/u including capsule endoscopy/enterscopy outpatient. COntinues to be fall risk and needs supervision. All the above instructions, plan, medication changes, pending labs and need for close follow up discussed in detail with patient and , all questions answered. They relay understanding and agree to comply with Dr. Galvan or PCP in [place]. d/c home today with close outpatient monitoring.
--- NOTE | 2018-09-04 19:01 | DS ---
Physical Exam: SUBJECTIVE: Patient seen and examined at bedside. Feels well and offers no complaints OBJECTIVE: Vital Signs Period Temp Pulse Resp BP Sys/Garland Pulse Ox Last 24 Hr 97.5 F-97.8 F 69-80 18-18 150-181/76-99 100-100 PHYSICAL EXAM GENERAL: The patient is awake, alert, and fully oriented, in no acute distress. EYES: extraocular movements intact, sclera anicteric, conjunctiva clear. NECK: Trachea midline, full range of motion, LUNGS: Breath sounds equal, clear to auscultation bilaterally HEART: Regular rate and rhythm, S1, S2 ABDOMEN: Soft, nontender, nondistended, normoactive bowel sounds EXTREMITIES: warm, well-perfused, no edema. NEUROLOGICAL: Cranial nerves II through XII grossly intact. Normal speech PSYCH: Normal mood, normal affect. SKIN: Warm, dry LABS Laboratory Results - last 24 hr 08/31/18 09/03/18 09/03/18 13:40 05:30 19:30 WBC RBC Hgb Hct MCV MCH MCHC RDW Plt Count MPV Absolute Neuts (auto) Neutrophils % Lymphocytes % Monocytes % Eosinophils % Basophils % Nucleated RBC % Hypochromia Platelet Estimate Polychromasia Poikilocytosis Anisocytosis Microcytosis Macrocytosis Ovalocytes Acanthocytes (Spur) Schistocytes Sodium 128 L Potassium 3.7 Chloride 97 L Carbon Dioxide 24 Anion Gap 8 BUN 10 Creatinine 0.9 Creat Clearance w eGFR 83.18 Est GFR (CKD-EPI)AfAm Est GFR (CKD-EPI)NonAf POC Glucometer Random Glucose 155 H Calcium 8.8 Phosphorus Magnesium Iron 397 H Albumin Blood Type AB POSITIVE Antibody Screen Negative Crossmatch See Detail 09/03/18 09/04/18 09/04/18 22:40 05:30 05:30 WBC 8.2 RBC 4.74 Hgb 8.9 L Hct 28.6 L MCV 60.4 L MCH 18.8 L MCHC 31.1 L RDW 24.7 H Plt Count 337 MPV 8.1 Absolute Neuts (auto) 5.7 Neutrophils % 70.2 Lymphocytes % 15.1 D Monocytes % 10.2 Eosinophils % 3.3 Basophils % 1.2 Nucleated RBC % 0 Hypochromia 2+ Platelet Estimate Normal Polychromasia 1+ Poikilocytosis 2+ Anisocytosis 2+ Microcytosis 2+ Macrocytosis 0 Ovalocytes 1+ Acanthocytes (Spur) 1+ Schistocytes 1+ Sodium 129 L Potassium 3.9 Chloride 96 L Carbon Dioxide 24 Anion Gap 9 BUN 8 Creatinine 0.7 Creat Clearance w eGFR Est GFR (CKD-EPI)AfAm 110.04 Est GFR (CKD-EPI)NonAf 94.95 POC Glucometer 222 Random Glucose 126 H Calcium 8.8 Phosphorus 3.5 Magnesium 2.0 Iron Albumin 3.7 Blood Type Antibody Screen Crossmatch 09/04/18 09/04/18 06:16 11:36 WBC RBC Hgb Hct MCV MCH MCHC RDW Plt Count MPV Absolute Neuts (auto) Neutrophils % Lymphocytes % Monocytes % Eosinophils % Basophils % Nucleated RBC % Hypochromia Platelet Estimate Polychromasia Poikilocytosis Anisocytosis Microcytosis Macrocytosis Ovalocytes Acanthocytes (Spur) Schistocytes Sodium Potassium Chloride Carbon Dioxide Anion Gap BUN Creatinine Creat Clearance w eGFR Est GFR (CKD-EPI)AfAm Est GFR (CKD-EPI)NonAf POC Glucometer 136 180 Random Glucose Calcium Phosphorus Magnesium Iron Albumin Blood Type Antibody Screen Crossmatch HOSPITAL COURSE: Date of Admission:08/31/18 Date of Discharge: 09/04/18 73 y/o M w/PMH HTN, HLD, anemia, DM presented to the ER for multiple episodes of syncope leading to falls over the last 2 weeks. Found to be anemic and severely hyponatremic and admitted to the ICU. Initial Na was 118 and Hgb was at 6.9 requiring 1 unit PRBC. Pt's sodium was slowly corrected to 129 and Hgb remained stable s/p PRBC. His HCTZ was stopped and fluoxetine is being tapered off. He remained asymptomatic throughout admission. Labs were brought in by family showing a sodium of 125 in May 2018 as an outpatient. He had EGD and colonoscopy in January 2018 in [place], [place] which was negative. Carotid U/S showed borderline hemodynamically significant stenosis on R and chest CT showed likely ILD findings. Pt understands he needs close medical follow up with PCP, GI, hematology, and a BMP within the next week to continue to monitor his Na. He was told to discontinue HCTZ, taper off fluoxetine under supervision from a physician, and to increase his losartan to 100 mg. Pt is transitioning his care to [place], [place] and will continue medical f/u there. Minutes to complete discharge: 55 Discharge Summary Reason For Visit: ANEMIA, HYPONATREMIA,SYNCOPE Condition: Stable - Instructions Diet, Activity, Other Instructions: You were admitted to the hospital for low sodium levels and low blood count requiring a blood transfusion. Your sodium levels have improved and your blood count has remained stable after the transfusion while you have been here. MEDICATIONS: You must stop taking hydrochlorothiazide (HCTZ) or any medications that contain hydrochlorothiazide (HCTZ). Your fluoxetine has been decreased to 10 mg to take over the next 2 weeks. You will need to follow up with your doctor for further tapering off of this medication. Your losartan will be increased to 100 mg daily. For your low sodium levels you will need a follow up blood test (BMP blood test ) within the next week. Please restrict Free Water to 1 liter per day. You must also avoid alcohol. You will also need to follow up with your primary care doctor within the week. You will also need to follow up with a stone product fabricator (GI doctor) within 1- 2 weeks for further work up of your low blood counts. Please note that low sodium can increase risk of falls, so strongly suggest 24 hour assist and supervision till next doctor visit. Your CT chest suggests "Interstitial Lung Disease" which will need follow up with a pricing manager. Please discuss with your doctor for outpatient referral. Strongly advise tobacco cessation. Carotid duplex and monitoring with your doctor (to assess for narrowing in your neck vessels). PENDING BLOOD WORK: hemoglobin electrophoress Hepatitis panel SPEP/UPEP Please have your doctor here or in [place] follow up on the results. Our cement car dumper suspects iron deficiency and you will need follow up and additional testing for thalessemia, so it is important to follow up on the blood work above. Referrals: Braden Galvan MD [Primary Care Provider] - Anjel Sawant DO [Staff Physician] - Judy Aquino MD [Staff Physician] - Disposition: HOME - Home Medications Comprehensive Discharge Medication List: Ambulatory Orders Amlodipine Besylate [Norvasc -] 10 mg PO DAILY 08/31/18 Metformin HCl [Glucophage] 1,000 mg PO DAILY 08/31/18 Fluoxetine HCl [Prozac -] 10 mg PO DAILY #30 capsule 09/04/18 Losartan Potassium [Cozaar -] 100 mg PO DAILY #60 tablet 09/04/18 This patient is new to me today: Yes Date on this admission: 09/04/18 Emergency Visit: No Critical Care patient: Yes Total Critical Care Time (in minutes): 45 Critical Care Statement: The care of this patient involved high complexity decision making to prevent further life threatening deterioration of the patient 's condition and/or to evaluate & treat vital organ system(s) failure or risk of failure. - Discharge Referral Referred to [facility] Med P.C.: No
[2018-09-05 12:22] LABS: HBSAG SCREEN Negative (Negative); HEP A AB, IGM Negative (Negative); HEP B CORE AB, TOT Negative (Negative)
[2018-09-05 15:17] LABS: HGB SOLUBILITY Negative (Negative); Hgb A 98.3 % (96.4-98.8); Hgb C 0 % (0.0); Hgb F 0 % (0.0-2.0); Hgb S 0 % (0.0)
[2018-09-06 15:16] LABS: ALBUMIN % 62.4 % (.); ALPHA-1 FOR UPE 4.3 % (.); TOTAL PROTEIN, URINE 48.5 mg/dL (Not Estab.)
== END 2018-09-04 16:10 | disposition home or self-care (01) | DRG 812 ==
LOC: JER 12:42 → JERBED 15:29 → JICU 09-01 21:07 → J2W 09-02 19:39 → JICU 09-02 19:44
PROVIDERS: ADMIT Internal Medicine; ATTEND Hospitalist
PROC: 30233N1 Transfusion of Nonautologous Red Blood Cells into Peripheral Vein, Percutaneous Approach (ICD-10-PCS; principal; 2018-09-01)
DX: D64.9 Anemia, unspecified (principal); E87.1 Hypo-osmolality and hyponatremia; J84.9 Interstitial pulmonary disease, unspecified; I10 Essential (primary) hypertension; E11.9 Type 2 diabetes mellitus without complications; R55 Syncope and collapse; F32.9 Major depressive disorder, single episode, unspecified; D50.9 Iron deficiency anemia, unspecified; D56.9 Thalassemia, unspecified; R63.4 Abnormal weight loss; Z68.20 Body mass index [BMI] 20.0-20.9, adult; Z86.19 Personal history of other infectious and parasitic diseases
CPT/HCPCS: 36415; 36430; 36511; 70450-TC; 71045-TC-FY; 71250-TC; 72126-TC; 74177-TC; 80048; 80051; 80053; 82040; 82272; 82436; 82533; 82550; 82553; 82607; 82728; 82746; 82747; 82962; 83021; 83540; 83550; 83735; 83930; 83935; 84100; 84133; 84155; 84156; 84165; 84166; 84300; 84439; 84443; 84466; 84484; 85014; 85025; 85027; 85044; 85610; 85651; 85660; 85730; 86140; 86704; 86706; 86708; 86803; 86850; 86900; 86901; 86922; 87340; 93005; 93010; 93306-TC; 93880-TC; 97116-GP; 97161-GP; 99285-25; J1756; J7030; P9038; P9058